=== PATIENT | female | born 1940 | race Caucasian/White ===

== ENCOUNTER → 2024-10-26 15:50 | Outpatient (REF) | payer OTHER, SELFPAY ==
[2024-10-26 16:52] LABS: Urine Albumin Trace (Neg - Trace); Urine Bilirubin Negative (Negative); Urine Character Clear (Clear); Urine Color Yellow; Urine Glucose Negative (Negative); Urine Ketone Negative (Negative); Urine Leukocyte 1+ (Negative); Urine Nitrite Negative (Negative); Urine Occult Blood Negative (Negative); Urine Urobilinogen Negative (Neg - 1+)
[2024-10-26 17:06] LABS: Urine Bacteria Moderate (Negative); Urine Red Blood Cell 0-2 /HPF (0-2)
== END ==
LOC: OLABBH 15:50
PROVIDERS: ATTENDING PHYSICIAN Family Medicine
DX: R30.0 Dysuria (principal)
CPT/HCPCS: 81003; 81015; 87086

== ENCOUNTER 2025-01-19 18:27 | Inpatient (IN) | payer OTHER, SELFPAY ==
[2025-01-19] VITALS (7 sets, daily range): BP systolic 127–184; BP diastolic 55–113; BMI 22.3
--- NOTE | 2025-01-19 14:10 | ED.GENMED ---
History of Present Illness
General
Chief Complaint: Fainting/Passed Out
Time Seen by Provider: 01/19/25 13:51
History of Present Illness
History of Present Illness:
Patient is a 84-year-old woman with history of dementia, prior CVA, hypertension, hyperlipidemia presenting to the emergency department change in her mental status. Per medics the concern was that patient was eating lunch and then slumped over and
had a syncopal event. I called [facility] who stated that patient is usually independent and walks around her floor. Today she was eating lunch in her usual state of health and then had sudden onset of generalized weakness and slumped over. No
slurring of her words. No focal deficits. On medics arrival she was 90% on room air so placed on 2 L. Otherwise history is limited given patient's dementia
Past History
Past History
ED Past Medical History: COPD, CVA, GERD, HTN, Hypercholesterolemia, Psychiatric (major depression), Other (sleep apnea, shingles,) and Other (chronic opiate use); Negative Renal failure (chronic kidney disease stage III)
ED Past Surgical History: Orthopedic (facet injection, epidural injection), Tonsilectomy and Other (Cataract)
Social History
Tobacco: Former smoker
Alcohol: Occasional
Drug: None
Personal:
Living: with family
Employment: Retired
Family History
Family History: Other
Phy Exam
Physical Exam
Physical Exam:
GENERAL: in no acute distress
HEENT: normocephalic, extraocular movements intact, moist oral mucosa
NECK: normal inspection
RESPIRATORY: no respiratory distress, clear to auscultation bilaterally
CARDIOVASCULAR: regular rate and rhythm
ABDOMEN/: soft, non-distended, non-tender to palpation, no rebound or guarding
EXTREMITIES: non-tender, no edema/swelling
NEUROLOGIC: awake and alert, oriented x 1, moves all extremities, equal strength in upper and lower extremities, no facial droop, no dysarthria
SKIN: warm
Course
Orders/Labs/Results
Orders:
Orders
01/19/25 14:00
Electrocardiogram (*1) Urgent
Reason for Study: Fatigue / Weakness
01/19/25 14:01
EKG- Treatment ONCE
01/19/25 14:04
Aspirin level [Salicylate] Urgent
COVID-19 Antigen Urgent
Source: Nasal Swab
Complete Blood Count/With Diff Urgent
Comprehensive Metabolic Panel Urgent
Troponin I Urgent
Tylenol [Acetaminophen] Urgent
Influenza A+B Rapid Molecular Urgent
TAYLOR Source: Nasal Swab
Specimen Description:
01/19/25 14:05
CT Head W/o Iv Contrast Urgent
Comment:
Reason For Exam: syncope
01/19/25 14:08
Urinalysis Reflex To Culture Urgent
CR Chest - 2 Views Urgent
Comment:
Reason For Exam: hypoxia
01/19/25 15:18
0.9% Sodium Chloride 1000 ml [Nss] 1,000 ml IV BOLUS
Abnormal Lab Results
01/19/25
14:04
Chloride 108 H mmol/L
(98-107)
BUN 34 H mg/dl
(7-17)
Creatinine 1.5 H mg/dL
(0.6-1.0)
Glucose 104 H mg/dl
(70-99)
Acetaminophen < 10 L ug/ml
(10-30)
01/19/25 14:04
Vital Signs
Initial and Last Documented VS:
Initial Vital Signs
Temp Pulse Resp
97.4 F 69 17
01/19/25 13:55 01/19/25 13:55 01/19/25 13:55
Last Documented Vital Signs
Temp Pulse Resp BP Pulse Ox
98.3 F 66 17 127/98 93
01/19/25 14:01 01/19/25 14:06 01/19/25 14:06 01/19/25 14:05 01/19/25 14:05
MDM/Problems Addressed
Differential Diagnosis Includes:
Patient is a 84-year-old woman presenting to the emergency department with change in her mental status and possible syncope. Vitals are unremarkable. She is on room air with normal oxygen. Exam does not show any neurodeficits. Broad differential
for patient including urine infection versus pneumonia versus metabolic derangement versus stroke though less likely as she has no obvious deficits. Will proceed with blood work urine EKG chest x-ray and CT scan of her head. She will need
admission .
*Critical Care Note
Total Time (30-74mins, 75-104mins- exclusive of procedures): Not Applicable
Update Note
Update Note:
Blood work is notable for an GEOFFREY. Creatinine is 1.5 with a baseline of 1. Will give fluids. CT scan of the head per my interpretation with no obvious hemorrhage. Official read pending. Discussed with hospitalist who accepted patient for
admission for change in mental status/possible syncope. CT read as well as urine and chest x-ray pending at the time of admission
ED Attending Note
-
Portions of this chart may have been created with voice recognition software.� Occasional wrong word or��sound alike� substitutions may have occurred due to the inherent limitations of voice recognition software.
Discharge Plan
Departure
Patient Disposition: Admit
Date of Disposition: 01/19/25
Time of Disposition: 15:19
Presentation/result/management discussed w/ accepting MD/DO: Hospitalist
Discharge Problem:
GEOFFREY (acute kidney injury), Altered mental status
Prescriptions:
No Action
rosuvastatin 5 MG tablet
5 mg PO DAILY@1999
donepezil 5 MG tablet
5 mg PO DAILY
Flovent Diskus 50 mcg/actuation blister with device
1 inh INHALATION R BID
sennosides [Senokot] 8.6 mg Tablet
8.6 mg PO DAILY@1999
amlodipine 2.5 mg Tablet
2.5 mg PO DAILY
acetaminophen 500 mg Tablet
1,000 mg PO TID@0600,1400,2200
alprazolam [Xanax] 0.25 mg Tablet
0.25 mg PO BID PRN (Reason: anxiety)
mirtazapine [Remeron] 15 mg Tablet
15 mg PO DAILY@1999
fluticasone propionate 50 mcg/actuation [place],Suspension
1 spray INTRANASAL DAILY
diclofenac sodium 1 % Gel
2 g TOPICAL BID
cholecalciferol (vitamin D3) [Vitamin D3] 50 mcg (2,000 unit) Tablet
50 mcg PO DAILY
aspirin 81 MG tablet,delayed release (DR/EC)
81 mg PO DAILY
pantoprazole [Protonix] 40 mg tablet,delayed release (DR/EC)
40 mg PO DAILY Qty: 30 0RF
Referrals:
Bird Corral MD [Family Provider] -
Interventions
Interventions:
*Risk Screen - Suicide Last Done: 01/19/25 13:58
*General Assessment Last Done: 01/19/25 14:00
*Neglect/Abuse Screening Last Done: 01/19/25 13:58
*ED COVID-19 Vaccine History Last Done: 01/19/25 13:58
Discharge Date and Time
Print Language: QATARI
[2025-01-19 14:35] LABS: ALT (SGPT) 16 U/L (0-35); AST (SGOT) 23 U/L (14-36); Acetaminophen < 10 ug/ml (10-30); Alkaline Phosphatase 49 U/L (38-126); Blood Urea Nitrogen 34 mg/dl (7-17); Carbon Dioxide 26 mmol/L (22-30); Chloride 108 mmol/L (98-107); Glucose 104 mg/dl (70-99); Potassium 4.8 mmol/L (3.5-5.1); Sodium 139 mmol/L (135-145); Total Bilirubin 0.3 mg/dl (0.2-1.3); Total Protein 6.3 g/dl (6.3-8.2); eGFR 34.15
[2025-01-19 14:38] LABS: COVID-19 Antigen Negative (Negative)
[2025-01-19 14:47] LABS: Troponin I 0.012 ng/ml
[2025-01-19 15:47] LABS: Salicylate < 1.0 mg/dl (2.0-20.0)
[2025-01-19 16:12] LABS: Hematocrit 29.1 % (37.0-47.0); Hemoglobin 8.1 g/dL (12.0-16.0); Mean Corp Hgb Conc. 27.8 g/dL (33.0-37.0); Mean Corpuscular Hgb 20.8 pg (27.0-31.0); Mean Corpuscular Volume 74.6 fL (81.0-99.0); Mean Platelet Volume 11.1 fL (7.4-10.4); Platelet Count 221 10^3/uL (130-400); Red Cell Dist. Width 17.1 % (11.5-14.5); White Blood Cell Count 6.4 10^3/uL (4.8-10.8)
--- NOTE | 2025-01-19 16:23 | HPS.HSE ---
Family Physician
-
Family Physician: Bird Corral
Chief Complaint
-
Slumped at table possible syncope
History of Present Illness
84-year-old female from [facility] who was reportedly sitting in the dining donald at a table eating lunch then had sudden generalized weakness and slumped over at the table. Staff reported there was no slurring of words or focal
deficits. She was eating lunch and in her usual state of health. She walked down to the dining donald with her walker. EMS report and oxygen 90% on room air and placed on 2 L however she was 94% on room air in the ER. She is oriented to first
name, date of 12�25 refers to her stepson is the best person of my life but did not know his name. She complains of left frontal headache/pressure she points to a pain scale face 5 out of 10. She did report headache earlier to nurse. She
denies dizziness or vertigo, blurred vision, sore throat, fever, chills, chest pain, palpitations, cough, shortness of breath, abdominal pain, nausea, vomiting, diarrhea, urinary symptoms.
Past medical history CVA 2008 with residual occasional dysarthria per son, HTN/hypertensive urgency 2019, upper GI bleed 12/01/2022 received 3 units PRBC,, dementia/moderate/severe, sundowning with agitation normally oriented to first name, date of
11/23 kuldip Kimbrough, walks with walker able to feed self, COPD, prior nicotine abuse 68 years 1 pack a day stop 2019, depression/anxiety, HLD, left humerus fracture 2021, chronic pain on chronic oral opiates
Impression/plan:
Admit to telemetry
#Episodic garbled speech concern for TIA versus CVA
#Possible syncope earlier today 01/19/2025 at shelter while sitting concern for Orthostatic hypotension versus TIA/CVA versus symptomatic anemia
#History CVA 2008 with residual episodic Dysarthria per kuldip Kimbrough POA at bedside
-Chronic infarcts bilateral external capsules on MRI brain 11/23/2020
COVID/influenza negative, CXR
-BP 167/55-permissive HTN x 24 hours
-Check lipid profile, HgbA1c
-Continue aspirin 81 mg daily
-Patient was taken off Plavix November 2022 due to upper GI bleed
-Continue Crestor 5 mg at bedtime
-Check Brain MRI
-Check Carotid ultrasounds
-Check orthostatics
-Consider Neurology consult in a.m. after imaging studies
PT/OT/case management consult
#Possible Syncope 2/2 Symptomatic Anemia
#History Upper GI bleed 12/01/2022
Hgb 8.1, blood consent obtained and sent
-Check type and screen
-Check stool occult blood
-Iron studies, B12, folate
-Continue IV Protonix 40 mg bid
-Clear liquid diet
Consider GI consult tomorrow based on labs and Hemoccult
EGD 12/01/2022 antral erythema, mild, biopsied,
GI note 12/02/2021 states at that time kuldip HAAS had refused colonoscopy as if anything was found he would not want surgery due to
history of dementia
#Possible syncope secondary to possible orthostatic hypotension
#HTN�benign
#Hx hypertensive urgency 2019
BP 127/98 > 167/55
-Check orthostatic vitals
-PT/OT
#Dementia/moderate�severe
#History of Sundowning with agitation especially when inpatient at hospital
-Patient lives at [facility] dementia unit
Oriented to first name, date of 11/23 but not year, occasionally recognizes kuldip Kimbrough at bedside today states' he is the best person in my
life but did not know his name'
-Normally walks with a walker stable gait is able to feed self with no difficulty
-Continue donepezil 5 mg daily
-Continue Xanax 0.5 mg twice daily as needed anxiety/agitation
-Continue risperidone 0.5 mg p.o. twice daily
#GEOFFREY on CKD 3 A
Creat 1.5 baseline appears 1.1
1 L IV NSS given in the ER, continue IV NSS 80 cc an hour x 2 L max
-Will follow BMP in a.m.
#COPD-no acute exacerbation
Prior nicotine abuse
- smoked 1 ppd for 68 years stopped 2019
-Continue albuterol inhaler every 6 as needed wheezing
#Hyperlipidemia
cont crestor 5 mg p.o. daily
-
#Depression /anxiety
- cont Wellbutrin 100 mg daily, Lexapro 5 mg daily, Xanax 0.25 mg twice daily as needed anxiety/agitation
#History of left humerus fracture unknown year question October 2022
#Chronic pain on chronic oral opiates
-Continue Tylenol 1000 mg , ,
-Continue oxycodone 2.5 mg p.o. twice daily, holkd senna in case Gi bleed
-Diclofenac sodium 2 g topical twice daily top left humerus
#History COVID 12/04/2022
-Did not require inpatient hospital stay
#Insomnia
-Continue melatonin 3 mg at bedtime, Remeron 30 mg p.o. at bedtime
Gi proph
iv ppi
Full code
Medical History
Past Medical History
Past Medical History: Reports Other
Additional Past Medical History:
CVA 2008 with residual occasional dysarthria per son
HTN/hypertensive urgency
Upper GI bleed 12/01/2022 received 3 units PRBC
Dementia/moderate/severe, sundowning with agitation normally oriented to first name, date of 11/23 kuldip Kimbrough, walks with walker able to
feed self
CKD 3B
COPD
Prior nicotine abuse 68 years 1 pack a day stop 2019
Depression/anxiety
HLD
Left humerus fracture 2021
chronic pain on chronic oral opiates
Spinal stenosis
COVID-19 infection October 2022 not hospitalized
Past Surgical History: Reports Other
Additional Past Surgical History:
Tonsillectomy
Left Knee Arthroscopy
Social History
Unable to obtain full social history at this time due to: Dementia
Tobacco: Former Smoker (68 years 1 pack a day stop 2019)
Alcohol: None
Drug: None
Personal: (2019)
Living: Long-Term ([facility] unit)
Employment: Retired
Family History
Family History: Other (Mother unsure, patient's father history Alzheimer's patient had 1 brother cancer unsure type per her kuldip Kimbrough at bedside)
Allergies / Home Medications
Allergies reflects when Allergies were last updated in [employer].
Home Medications with original date entered in [employer]
Allergy/Medication List:
Allergies
Allergy/AdvReac Type Severity Reaction Status Date / Time
No Known Drug Allergies Allergy Unknown Verified 12/02/21 18:27
Home Medications
rosuvastatin 5 mg tablet 5 mg PO DAILY High cholesterol 01/01/16
donepezil 5 mg tablet 5 mg PO DAILY Neurological Condition 05/06/21
acetaminophen 500 mg tablet 1,000 mg PO TID@0600,1400,2200 Pain 11/26/22
alprazolam 0.25 mg tablet (Xanax) 0.25 mg PO BIDPRN PRN anxiety 11/26/22
amlodipine 2.5 mg tablet 2.5 mg PO DAILY Blood pressure 11/26/22
cholecalciferol (vitamin D3) 50 mcg (2,000 unit) tablet (Vitamin D3) 50 mcg PO DAILY Supplement 11/26/22
diclofenac sodium 1 % topical gel 2 g topical BID top left humerus 11/26/22
sennosides 8.6 mg tablet (Senokot) 8.6 mg PO DAILY Constipation 11/26/22
aspirin 81 mg tablet,delayed release 81 mg PO DAILY Blood clot prevention/tx 11/27/22
pantoprazole 40 mg tablet,delayed release (Protonix) 40 mg PO DAILY #30 tabs 12/04/22
albuterol sulfate 90 mcg/actuation aerosol inhaler 2 puff inhalation R Q6HPRN PRN wheezing 01/19/25
azelastine 137 mcg (0.1 %) nasal spray 1 spray intranasal DAILY 01/19/25
bupropion HCl 100 mg tablet,12 hr sustained-release 100 mg PO DAILY 01/19/25
escitalopram oxalate 5 mg tablet 5 mg PO DAILY 01/19/25
guaifenesin 600 mg tablet, extended release 12 hr (Mucinex) 600 mg PO BID 01/19/25
ipratropium bromide 21 mcg (0.03 %) nasal spray 1 spray intranasal DAILY 01/19/25
loratadine 10 mg tablet 10 mg PO DAILY 01/19/25
melatonin 3 mg tablet 3 mg PO HS 01/19/25
mirtazapine 30 mg tablet 30 mg PO HS 01/19/25
oxycodone 5 mg tablet 2.5 mg PO BID 01/19/25
risperidone 0.5 mg tablet 0.5 mg PO BID 01/19/25
Review of Systems
-
History Source: Patient, Family (Kuldip Kimbrough at bedside) and Long-Term ([facility] report to ER nurse)
A 12 point ROS was completed and negative except as noted: Yes
Constitutional: Reports Other (Slumped over at table during eating lunch no reported slurred speech unsure if actual syncope); Denies Fever or Chills
EENT: Denies Sore Throat or Runny Nose
Respiratory: Denies Cough or Trouble Breathing
Cardiac: Reports Syncope (Possible today); Denies Chest Pain, Diaphoresis or Palpitations
Abdomen/GI: Denies Abdominal Pain, Nausea, Vomiting, Diarrhea, Constipated or Bloody Stools
: Denies Dysuria, Frequency, Flank Pain, Incontinence, Difficulty Voiding or Urgency
Musculoskeletal: Denies Joint Pain or Edema
Skin: Denies Itching or Rash
Neurological: Reports Headache (Patient points to left side frontal head 5 out of 10 picture scale); Denies Dizzy or Weakness
Endocrine: Reports No Symptoms
Hematologic/Lymphatic: Reports No Symptoms
Psych: Reports Calm
Physical Exam
Vital Signs
Vital Signs
Temp Pulse Resp BP Pulse Ox
98.3 F 66 17 127/98 93
01/19/25 14:01 01/19/25 14:06 01/19/25 14:06 01/19/25 14:05 01/19/25 14:05
Physical Exam
General: Comfortable and Conversant; No Fever or Chills
HEENT: NormoCephalic, PERRLA (3 mm bilateral), [place] Conjunctivae, No Ptosis, Neck Nontender and Other (Episodic dysarthric speech when attempting to show me where her headache was lasting approximately 30 seconds then resumed to baseline clear)
Respiratory: Clear; No Wheezes or Rales
Cardiac: S1/S2, Regular Rhythm and Peripheral Edema (+1 dorsal pedal); No Tachycardia, Murmur, Rub or Gallop
Breast: Deferred by me
GI: Soft, Non Tender, Non Distended, Normal Bowel Sounds and No Hepatosplenomegaly
Rectal: Deferred by Provider
Genito-urinary: Deferred by me
Musculoskeletal: No Clubbing, No Cyanosis, Edema, Left Lower Extremity (Dorsal pedal edema +1) and No Edema (Dorsal pedal edema +1); No Edema, Left Upper Extremity or Edema, Right Upper Extremity
Skin: Warm and Dry; No Rash or Jaundice
Neuro: Awake, Alert, Oriented (To first name, date of 11/23 but not year, recognize son-in-law's face as the best person of her life but forgot his name, knows she is in a hospital,), No Motor Deficits, Nonfocal/grossly intact, Cranial Nerves
Intact, No Sensory Deficits, Slurred Speech (20 to 30 seconds episodic dysarthric speech when trying to move her left hand to head to show me where her headache was did resolve with no other focal deficits went back to baseline orientation) and
Other (Full range of motion upper arms lower legs 5 out of 5 strength); No Facial Droop, Tremors or Sedated
Psych: Anxious
Laboratory Results
-
01/19/25 14:04
01/19/25 14:04
Laboratory Results
Total Bilirubin 0.3 mg/dl (0.2-1.3) 01/19/25 14:04
AST 23 U/L (14-36) 01/19/25 14:04
ALT 16 U/L (0-35) 01/19/25 14:04
Alkaline Phosphatase 49 U/L (38-126) 01/19/25 14:04
Troponin I 0.012 ng/ml 01/19/25 14:04
Impression/Plan
-
IMPRESSION:
PLAN:
[2025-01-19] MEDS: NSS 1000 IV ×2 (16:26→18:23)
[2025-01-19 16:28] LABS: % Basophils 0.9 % (0-2); % Eosinophils 3.3 % (0-6); % Immature Granulocytes 0.2 % (0-0.5); % Lymphocytes 21.5 % (20.5-51.1); % Monocytes 8.9 % (1.7-9.3); % Neutrophils 65.2 % (42.2-75.2); Absolute Basophils 0.1 10^3/uL (0-0.2); Absolute Eosinophils 0.2 10^3/uL (0-0.7); Absolute Lymphocytes 1.4 10^3/uL (1.2-3.4); Absolute Monocytes 0.6 10^3/uL (0.1-0.6); Absolute Neutrophils 4.2 10^3/uL (1.4-6.5); Nucleated Red Blood Cells % 0 %
[2025-01-19 16:35] LABS: Anisocytosis 2+; Hypochromasia 3+; Macrocytosis 2+; Normal RBC Morphology No; Ovalocytes 2+; Tear Drop Red Blood Cells 1+
[2025-01-19 16:37] LABS: Urine Albumin 1+ (Neg - Trace); Urine Bilirubin Negative (Negative); Urine Character Clear (Clear); Urine Color Yellow; Urine Glucose Negative (Negative); Urine Ketone Negative (Negative); Urine Leukocyte Negative (Negative); Urine Nitrite Negative (Negative); Urine Occult Blood Negative (Negative); Urine Urobilinogen Negative (Neg - 1+)
[2025-01-19 17:32] LABS: Iron < 20 ug/dl (37-170)
[2025-01-19] MEDS: TYLENOL 1000 MG PO (17:33)
[2025-01-19 17:36] LABS: Total Iron Binding Capacity 331 ug/dl (265-497)
[2025-01-19 17:42] LABS: Urine Red Blood Cell 0-2 /HPF (0-2); Urine Squamous Cell 0-2 /LPF (Few); Urine White Cell 0-2 /HPF (0-5)
--- NOTE | 2025-01-19 17:49 | W.PN.UPDATE ---
Update Note
Progress Note Update
This is an addendum to the H&P written by Katalina Amato on 01/19/2025. Patient seen and examined independently with NAPHTHAL[facility] OPERATOR.
84-year-old female past medical history of anemia secondary to upper GI bleeding, hypertension, hyperlipidemia, CKD 3A, CVA, COPD, dementia, anxiety/depression, presenting from [facility] with change in mental status. She slumped over a [place]
house with possible syncopal episode.
Patient had profound dysarthria now resolved.
Complaining of headache currently and did have an episode of dysarthria with Katalina now resolved.
Labs show worsening hemoglobin down to 8.1 from 9.2 previously. Creatinine of 1.[address] head shows no acute abnormality. Chest x-ray unremarkable. Urinalysis unremarkable. COVID and flu negative.
Unclear etiology of possible syncopal episode. This could be secondary to orthostatic hypotension versus versus symptomatic anemia versus CVA.
Check orthostatic vital signs. Anemia workup including fecal occult. IV Protonix 40 twice daily. Clear liquids, n.p.o. past midnight. Continue IV fluids. Check MRI brain and carotid ultrasound. Colonoscopy was refused in the past.
[2025-01-19 18:05] LABS: TSH Reflex To Free T4 0.72 uIU/ml (0.47-4.68)
[2025-01-19 18:09] LABS: Ferritin 8.4 ng/ml (11.1-264.0)
[2025-01-19] MEDS: NSS (PRESERVATIVE FREE) 10 ML IV (18:19)
[2025-01-19] MEDS: XANAX 0.25 MG PO ×2 (18:21→21:01)
[2025-01-19] MEDS: PROTONIX IV 40 MG IV (18:21)
[2025-01-19 18:40] LABS: Folate 10.2 ng/ml (2.76-20); Vitamin B12 240 pg/ml (239-931)
[2025-01-19] MEDS: RISPERDAL 0.5 MG PO (21:01)
[2025-01-19] MEDS: MELATONIN 3 MG PO (22:33)
[2025-01-19] MEDS: DICLOFENAC 1% TOPICAL GEL TOPICAL (22:34)
[2025-01-19] MEDS: ROXICODONE PO (22:34)
[2025-01-19] MEDS: REMERON 30 MG PO (22:35)
[2025-01-20] VITALS (8 sets, daily range): BP systolic 119–200; BP diastolic 71–96; PULSE 77
--- NOTE | 2025-01-20 05:25 | PTCARENOTE ---
Patient arrived to floor. Patient was pulled over onto bed. Bed alarm placed under patient. Patient oriented to room, call musa in reach, bed in lowest position. Will continue to monitor.
[2025-01-20 06:13] LABS: Hemoglobin 8.1 g/dL (12.0-16.0); Mean Corpuscular Volume 74.4 fL (81.0-99.0); White Blood Cell Count 6.8 10^3/uL (4.8-10.8)
[2025-01-20 06:14] LABS: % Immature Granulocytes 0.4 % (0-0.5); % Lymphocytes 17.6 % (20.5-51.1); % Monocytes 8.6 % (1.7-9.3); % Neutrophils 69.4 % (42.2-75.2); Absolute Basophils 0.1 10^3/uL (0-0.2); Absolute Eosinophils 0.2 10^3/uL (0-0.7); Absolute Lymphocytes 1.2 10^3/uL (1.2-3.4); Absolute Monocytes 0.6 10^3/uL (0.1-0.6); Absolute Neutrophils 4.7 10^3/uL (1.4-6.5); Mean Corp Hgb Conc. 27.9 g/dL (33.0-37.0); Mean Corpuscular Hgb 20.8 pg (27.0-31.0); Mean Platelet Volume 10.3 fL (7.4-10.4); Nucleated Red Blood Cells % 0 %; Platelet Count 220 10^3/uL (130-400)
[2025-01-20 06:36] LABS: ALT (SGPT) 17 U/L (0-35); AST (SGOT) 27 U/L (14-36); Albumin 4.3 g/dl (3.5-5.0); Alkaline Phosphatase 55 U/L (38-126); Blood Urea Nitrogen 23 mg/dl (7-17); Carbon Dioxide 21 mmol/L (22-30); Chloride 109 mmol/L (98-107); Estimated Creatinine Clearance 30 ml/min; Glucose 95 mg/dl (70-99); HDL Cholesterol 73 mg/dl; LDL Cholesterol, Calculated 29 mg/dl; Magnesium 1.9 mg/dl (1.6-2.3); Potassium 4.3 mmol/L (3.5-5.1); Sodium 141 mmol/L (135-145); Total Bilirubin 0.7 mg/dl (0.2-1.3); Total Cholesterol 117 mg/dl (50-199); Total Protein 6.6 g/dl (6.3-8.2); Triglyceride 76 mg/dl (10-149); Very Low Density Lipoprotein 15 mg/dl (0-30); eGFR 44.64
[2025-01-20] MEDS: TYLENOL 1000 MG PO ×2 (06:36→14:28)
[2025-01-20] MEDS: NSS 1000 IV ×2 (06:37→23:00)
--- NOTE | 2025-01-20 07:36 | W.PN.HOSP.TC ---
Today's Communication/Plan
-
Head CT showed no acute intracranial abnormalities. Patient was taken off Plavix November 2022 due to an upper GI bleed. Awaiting brain MRI. Carotid ultrasound canceled. Neurology consulted.
Assessment / Plan
Assessment / Plan
HPI: Patient is an 84-year-old female from [facility] who was brought to the emergency department after having an episode of sudden generalized weakness and slumping over at a table while eating lunch at the [employer]. Staff
reported there were no slurring of words or focal deficits. She was eating lunch and in her normal state of health prior to these events. She walked herself down to the dining don[employer] with her walker as she usually does. The patient has a past
medical history of CVA in 2008 with residual occasional dysarthria per son, hypertension/hypertensive urgency in 2019, upper GI bleed on 12/01/2022 and received 3 units of PRBCs at that time, dementia, sundowning, COPD, former smoker with
approximately 68 pack years, depression/anxiety, hyperlipidemia, left humerus fracture in 2021, chronic pain on chronic oral opiates. On arrival, EMS reported an oxygen saturation of 90% on room air and she was placed on 2 L with 94% oxygen
saturation while in the ER. On arrival to the emergency department the patient was oriented to first name, date of , and she referred to her stepson as the best person in her life but did not remember his name. She denied any dizziness,
vertigo, blurred vision, sore throat, fever, chills, chest pain, palpitations, cough, shortness of breath, abdominal pain, nausea, vomiting, diarrhea, and urinary symptoms. In the emergency department the patient's white blood cell count was 6.4
within normal limits and her hemoglobin was 8.1. Chemistry labs showed an elevated chloride of 108, elevated BUN of 34, and a marked increase of creatinine of 1.5 from her baseline of 1.1 measured on 12/04/2022. This sudden rise in creatinine
indicated acute kidney injury. Of note, the patient's ferritin was measured at 8.4. Troponins were within normal limits. The patient was admitted to [facility] for altered mental status and acute kidney injury.
Assessment/Plan:
-Altered mental status:
Secondary to TIA, CVA or toxic metabolic encephalopathy
Patient had a history of CVA in 2008 with residual episodic dysarthria as per kuldip Kimbrough who is the power of finance attorney at bedside
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
Patient was taken off Plavix on November 2022 due to upper GI bleed
Blood pressure was elevated at 167/55�currently allowed permissive hypertension
LFTs within normal limits
Alk phos within normal limit
Continue aspirin 81 mg daily
Brain MRI -pending
Head CT conducted on 01/19/2025 showed no acute intracranial abnormalities. There is an old 8 mm lacunar infarct in the posterior inferior aspect of the left Lang there is moderate diffuse cortical atrophy with moderate nonspecific white matter
changes.
Carotid ultrasound
Chest x-ray conducted on 01/19/2025 showed lungs clear of consolidation. Cardiac silhouette size is enlarged with no convincing evidence of interstitial edema pattern.
Monitor orthostatics
Neurology consulted
-Acute kidney injury on CKD stage IIIa:
Creatinine measured in the emergency department was 1.5 compared to a baseline of 1.1 on prior lab work
1 L IV normal saline given in the emergency department�continue IV fluid support
Continue to trend creatinine and follow CMP
Syncope secondary to symptomatic anemia versus orthostatic hypotension:
Patient has a history of upper GI bleed on 12/01/2022
EGD on 12/01/2022 showed antral erythema, mild, it was biopsied
Gastroenterology note on 12/02/2021 states that at the time that a colonoscopy would not be done due to family decision.
Hemoglobin in the emergency department was measured at 8.1
Stool occult blood
Iron, B12, folate
Stress ulcer prophylaxis is Protonix 40 mg twice daily
May consider GI consult if suspicion of GI bleed
Follow orthostatic vitals
Will consult PT/OT
-History of hypertensive urgency in 2020
Continue amlodipine
-Dementia with history of sundowning:
Moderate/severe dementia
Patient has a history of sundowning with agitation while admitted to the hospital
Normally walks with a walker
Continue donepezil
Continue Xanax and risperidone
-COPD:
History of nicotine dependence
98-bfmd-dbed smoker that stopped in 2019
Continue albuterol as needed
-Hyperlipidemia:
Continue Crestor
CODE STATUS: DNR
Stress Ulcer Prophylaxis: Protonix IV
DVT Prophylaxis: Sequential compression devices
Anticipated Discharge: > 48 hours
Subjective/Interval History
-
Date of Service: January 20, 2025
Met with patient at the bedside. The patient is pleasant in conversation but appears tired, fatigued and confused. She was confused when I asked her if I could listen to her heart and lungs and required numerous attempts at explanation for her to
understand that I was just going to listen to her with my stethoscope.
Objective Data
-
Labs:
Laboratory Results
01/20/25
05:54
WBC 6.8
Hgb 8.1 L
Hct 29.0 L
Plt Count 220
Sodium 141
Potassium 4.3
Chloride 109 H
Carbon Dioxide 21 L
BUN 23 H
Creatinine 1.2 H
Glucose 95
Calcium 9.0
Total Bilirubin 0.7
AST 27
ALT 17
Alkaline Phosphatase 55
Vital Signs:
Vital Signs
Temp Pulse Resp BP Pulse Ox
97.4 F 77 18 161/75 95
01/20/25 03:34 01/20/25 03:34 01/20/25 03:34 01/20/25 03:34 01/20/25 03:34
I&O
01/19/25 01/20/25 01/21/25
06:59 06:59 06:59
Intake Total 480 / 480
Balance 480 / 480
Review of Systems
-
History Source: Patient
Constitutional: Reports No Symptoms
EENT: Reports No Symptoms Reported
Respiratory: Reports No Symptoms
Cardiac: Reports No Symptoms
Abdomen/GI: Reports No Symptoms
Breast: Reports No Symptoms
Genitourinary: Reports No Symptoms
Musculoskeletal: Reports No Symptoms
Skin: Reports No Symptoms
Neuro: Reports No Symptoms
Physical Exam
-
General: Well Developed, Well Nourished and No Apparent Distress
HEENT: Normocephalic, Atraumatic and Moist Mucous Membranes
Respiratory: Clear to Auscultation
Cardiac: S1/S2; Negative Murmur, Rub or JVD
Breast: Deferred by me
GI: Soft, Nontender, Nondistended and Normal Bowel Sounds
Rectal: Deferred by Provider
Genito-urinary: Deferred by me
Musculoskeletal: No Clubbing
Psych: Confused
--- NOTE | 2025-01-20 08:15 | W.PN.UPDATE ---
Update Note
Progress Note Update
I saw and evaluated the patient. I reviewed the resident�s note and agree with findings and plan as documented in the resident�s note.
Patient offers no acute complaints.
Gen: NAD, Awake and alert
Eyes: EOMI, PERRLA, no scleral icterus.
Neck: supple.
CV: RRR, +S1/S2, no m/r/g.
Resp: CTAB, no rales, wheezes, or rhonchi.
Abd: +BS, soft, NT, ND
Skin: No rashes.
Neuro: CN 2-12 intact, non-focal.
Psych: Normal mood and affect.
Episodic dysarthria (garbled speech):
-possible TIA/CVA, possibly due to possible syncope on 01/19/2025
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
-Chronic infarcts bilateral external capsules on MRI brain 11/23/2020
-check MRI brain
-no indication for carotid U/S prior to MRI, cancelled for now
-Tele, reviewed my me, with afib/flutter
-cont ASA/statin
-note, pt was taken off Plavix November 2022 due to upper GI bleed
-PT/OT/CM
-c/s neuro
Other problems:
Chronic anemia: Hb stable
Essential HTN: cont Norvasc
Dementia, mod-sev: h/o sundowning/agitation (behavioral disturbances), cont Aricept/Risperdone/Xanax PRN
GEOFFREY on CKD3a, resolved with IVFs
COPD, not in acute exacerbation: albuterol PRN
Hyperlipidemia: cont statin
Depression/anxiety: cont Wellbutrin/Lexapro/Xanax PRN
Chronic pain with chronic opioid use with dependence: cont home oxycodone
Insomnia: Cont Melatonin/Remeron
FULL/SCDs
--- NOTE | 2025-01-20 08:48 | CON.NEURO ---
Consultation
Order
Date of Consultation: 01/20/25
Requesting Provider: Shamar Ng MD
Reason for Consult: Dysarthria
Neurology Consultation Note.
HPI: This is an 84-year-old woman who presented to [facility] on 01/19/2025 with a spell. According to EMR patient was witnessed to slumped over in the table during the lunch on the day of presentation.
Neurology consultation was requested for evaluation and management of dysarthria. According to EMR patient Ms. Drummond has had intermittent dysarthria since her stroke.
The patient is unable to provide history.
ER VS: 127/98-184/76, afebrile.
EKG:NSR, QTc Int : 437 ms
PDMP:Oxycodone Hcl (Ir) 5 Mg 30 tablets filled in on 11/25/2024, 12/21/2024, Alprazolam 0.25 Mg 30 tabs filled in on 11/02/2024.
Labs: Glucose�104, creatinine�1.5, normal sodium, WBCs, TSH, hemoglobin�8.1, LDL�29, B12�240
CT head wo contrast-chronic 8 mm lacunar infarct in the posterior inferior aspect left putamen; moderate diffuse cortical atrophy with moderate nonspecific white matter changes.
MAR: Risperidone, oxycodone, alprazolam.
PMH: left lentiform nucleus infarct, L4-5 spinal stenosis, HTN, CKD, COPD, h/o GIB, anemia, ambulatory dysfunction, CASTRO, MDD, chronic pain syndrome
PSH:unknown
SH: resident at [facility]; ambulates with a walker, former smoker.
FH: Unknown
All:NKDA
ROS: Negative for headache, change in vision, strength.
General: Well developed. In no acute distress.
Cardio: Regular rate . Extremities are without cyanosis or edema.
Neuro:
Mental Status: Alert, oriented to name, '50' ' I am at my home '. Nonfluent, no hemineglect. Fluctuating mood. Disinhibited.
Cranial Nerves: Pupils are equally round and reactive to light. Horizontal EOMs full. Blink to threat bilaterally. Bilateral ptosis no nystagmus. Face symmetric. Preserved hearing AU. No dysarthria.
Motor: increased motor tone right greater than left
Reflexes: Limited exam due to increased motor tone/cooperation
Sensory: Limited due to poor attention.
Coordination: No tremors myoclonic movements.
Gait: deferred
Assessment and Plan:
I. Probable syncope, less likely seizure.
II. Multifactorial encephalopathy (neurodegenerative, toxic, metabolic)
III. 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
IV. Vitamin B12 insufficiency
V. L4-L5 central spinal stenosis with ambulatory dysfunction
-Continue telemetry monitoring
-Fall and delirium precautions
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
-Please check CK, MMA, HC, antiparietal and anti IF ab
-Routine EEG
-Continue aspirin for stroke prophylaxis. LDL�at goal.
-Will obtain collateral history from patient's family regarding cognitive baseline.
-DVT prophylaxis.
I personally reviewed all radiology and labs along with past medical records pertinent to current medical problems. Total time spent in patient care is 60 minutes.
Thank you for allowing us to participate in the care of this patient. We will continue to follow. Please do not hesitate to contact us with any questions or concerns.
Subjective/Objective
Subjective Data
Date of Service: January 20, 2025
Objective Data
Vital Signs
Temp Pulse Resp BP Pulse Ox
36.5 C 74 16 156/77 95
01/20/25 07:44 01/20/25 07:44 01/20/25 07:44 01/20/25 07:44 01/20/25 07:44
Lab Results
01/20/25 05:54
01/20/25 05:54
Sodium 141 mmol/L (135-145) 01/20/25 05:54
Potassium 4.3 mmol/L (3.5-5.1) 01/20/25 05:54
BUN 23 mg/dl (7-17) H 01/20/25 05:54
Glucose 95 mg/dl (70-99) 01/20/25 05:54
Calcium 9.0 mg/dl (8.4-10.2) 01/20/25 05:54
LDL Cholesterol, Calc 29 mg/dl 01/20/25 05:54
Vitamin B12 240 pg/ml (239-931) 01/19/25 14:04
Patient Allergies
No Known Drug Allergies Allergy (Verified 12/02/21 18:27)
Unknown
Medications
-
Active Medications
Generic Name Dose Route Start Last Admin
Trade Name Freq PRN Reason Stop Dose Admin
Acetaminophen 1,000 mg 01/20/25 06:00 01/20/25 06:36
Acetaminophen 500 Mg Tablet PO 02/17/25 05:59 1,000 mg
TID@0600,1400,2200 JOSEPHINE Administration
Albuterol 2 puff 01/19/25 20:17
Albuterol Hfa [90 Mcg/Dose] Inhaler INH
R Q6HPRN PRN
wheezing
Protocol
Alprazolam 0.25 mg 01/19/25 20:17 01/19/25 21:01
Alprazolam 0.25 Mg Tablet PO 02/16/25 20:16 0.25 mg
BIDPRN PRN Administration
anxiety
Amlodipine Besylate 2.5 mg 01/20/25 08:00
Amlodipine 2.5 Mg Tablet PO 02/17/25 07:59
DAILY JOSEPHINE
Aspirin 81 mg 01/20/25 08:00
Aspirin 81 Mg (Enteric Coated) Tablet PO 02/17/25 07:59
DAILY JOSEPHINE
Bupropion HCl 100 mg 01/20/25 08:00
Bupropion (12hr) Sustained Release 100 Mg Tablet PO 02/17/25 07:59
DAILY JOSEPHINE
Cholecalciferol 50 mcg 01/20/25 08:00
Cholecalciferol (Vitamin D3) 50 Mcg Tablet (2,000 Units) PO 02/17/25 07:59
DAILY JOSEPHINE
Diclofenac Sodium 2 gram 01/19/25 20:17 01/19/25 22:34
Diclofenac 1% Topical Gel 100 Gram Tube TOPICAL 02/16/25 20:16 Not Given
BID JOSEPHINE
Protocol
Donepezil HCl 5 mg 01/20/25 08:00
Donepezil 5 Mg Tablet PO 02/17/25 07:59
DAILY JOSEPHINE
Escitalopram Oxalate 5 mg 01/20/25 08:00
Escitalopram 5 Mg Tablet PO 02/17/25 07:59
DAILY JOSEPHINE
Sodium Chloride 1,000 mls @ 80 mls/hr 01/19/25 17:45 01/20/25 06:37
Nss IV 01/20/25 18:44 1,000 mls
.[id number] JOSEPHINE Administration
Loratadine 10 mg 01/20/25 08:00
Loratadine 10 Mg Tablet PO 02/17/25 07:59
DAILY JOSEPHINE
Melatonin 3 mg 01/19/25 22:00 01/19/25 22:33
Melatonin 3 Mg Tablet PO 02/16/25 21:59 3 mg
HS JOSEPHINE Administration
Mirtazapine 30 mg 01/19/25 22:00 01/19/25 22:35
Mirtazapine 30 Mg Tablet PO 02/16/25 21:59 30 mg
HS JOSEPHINE Administration
Oxycodone HCl 2.5 mg 01/19/25 20:17 01/19/25 22:34
Oxycodone 5 Mg Regular Release Tablet PO 02/02/25 20:16 Not Given
BID JOSEPHINE
Pantoprazole Sodium 40 mg 01/20/25 08:00
Pantoprazole Sodium 40 Mg/10 Ml Vial IV 02/17/25 07:59
BID JOSEPHINE
Risperidone 0.5 mg 01/19/25 20:17 01/19/25 21:01
Risperidone 0.5 Mg Tablet PO 02/16/25 20:16 0.5 mg
BID JOSEPHINE Administration
Rosuvastatin Calcium 5 mg 01/20/25 08:00
Rosuvastatin (Crestor) 5 Mg Tablet PO 02/17/25 07:59
DAILY JOSEPHINE
Sodium Chloride 10 ml 01/20/25 08:00
Sodium Chloride 0.9% (Preservative Free) 10 Ml Vial IV 02/17/25 07:59
BID JOSEPHINE
Sodium Chloride 0 flush 01/19/25 19:00
Sodium Chloride 0.9% (Flush) Syringe IV 02/16/25 18:59
PER PROTOCOL JOSEPHINE
Home Medications
�Medication �Instructions �Recorded
rosuvastatin 5 mg tablet 5 mg PO DAILY High cholesterol 01/01/16
donepezil 5 mg tablet 5 mg PO DAILY Neurological 05/06/21
Condition
acetaminophen 500 mg tablet 1,000 mg PO TID@0600,1400,2200 Pain 11/26/22
alprazolam 0.25 mg tablet (Xanax) 0.25 mg PO BIDPRN PRN anxiety 11/26/22
amlodipine 2.5 mg tablet 2.5 mg PO DAILY Blood pressure 11/26/22
cholecalciferol (vitamin D3) 50 50 mcg PO DAILY Supplement 11/26/22
mcg (2,000 unit) tablet (Vitamin
D3)
diclofenac sodium 1 % topical gel 2 g topical BID top left humerus 11/26/22
sennosides 8.6 mg tablet (Senokot) 8.6 mg PO DAILY Constipation 11/26/22
aspirin 81 mg tablet,delayed 81 mg PO DAILY Blood clot 11/27/22
release prevention/tx
pantoprazole 40 mg tablet,delayed 40 mg PO DAILY #30 tabs 12/04/22
release (Protonix)
albuterol sulfate 90 mcg/actuation 2 puff inhalation R Q6HPRN PRN 01/19/25
aerosol inhaler wheezing
azelastine 137 mcg (0.1 %) nasal 1 spray intranasal DAILY 01/19/25
spray
bupropion HCl 100 mg tablet,12 hr 100 mg PO DAILY 01/19/25
sustained-release
escitalopram oxalate 5 mg tablet 5 mg PO DAILY 01/19/25
guaifenesin 600 mg tablet, 600 mg PO BID 01/19/25
extended release 12 hr (Mucinex)
ipratropium bromide 21 mcg (0.03 1 spray intranasal DAILY 01/19/25
%) nasal spray
loratadine 10 mg tablet 10 mg PO DAILY 01/19/25
melatonin 3 mg tablet 3 mg PO HS 01/19/25
mirtazapine 30 mg tablet 30 mg PO HS 01/19/25
oxycodone 5 mg tablet 2.5 mg PO BID 01/19/25
risperidone 0.5 mg tablet 0.5 mg PO BID 01/19/25
Vital Signs and Labs
-
Vital Signs and Labs:
Vital Signs
Temp Pulse Resp BP Pulse Ox
36.6 C 75 16 119/84 96
01/20/25 11:17 01/20/25 11:17 01/20/25 11:17 01/20/25 11:17 01/20/25 11:17
Lab Results
01/20/25 05:54
01/20/25 05:54
Sodium 141 mmol/L (135-145) 01/20/25 05:54
Potassium 4.3 mmol/L (3.5-5.1) 01/20/25 05:54
BUN 23 mg/dl (7-17) H 01/20/25 05:54
Glucose 95 mg/dl (70-99) 01/20/25 05:54
Calcium 9.0 mg/dl (8.4-10.2) 01/20/25 05:54
LDL Cholesterol, Calc 29 mg/dl 01/20/25 05:54
Vitamin B12 240 pg/ml (265-613) 01/19/25 14:04
Medications
-
Medications:
Generic Name Dose Route Start Last Admin
Trade Name Freq PRN Reason Stop Dose Admin
Acetaminophen 1,000 mg 01/20/25 06:00 01/20/25 06:36
Acetaminophen 500 Mg Tablet PO 02/17/25 05:59 1,000 mg
TID@0600,1400,2200 JOSEPHINE Administration
Albuterol 2 puff 01/19/25 20:17
Albuterol Hfa [90 Mcg/Dose] Inhaler INH
R Q6HPRN PRN
wheezing
Protocol
Alprazolam 0.25 mg 01/19/25 20:17 01/19/25 21:01
Alprazolam 0.25 Mg Tablet PO 02/16/25 20:16 0.25 mg
BIDPRN PRN Administration
anxiety
Amlodipine Besylate 2.5 mg 01/20/25 08:00 01/20/25 09:17
Amlodipine 2.5 Mg Tablet PO 02/17/25 07:59 2.5 mg
DAILY JOSEPHINE Administration
Aspirin 81 mg 01/20/25 08:00 01/20/25 09:17
Aspirin 81 Mg (Enteric Coated) Tablet PO 02/17/25 07:59 81 mg
DAILY JOSEPHINE Administration
Bupropion HCl 100 mg 01/20/25 08:00 01/20/25 09:18
Bupropion (12hr) Sustained Release 100 Mg Tablet PO 02/17/25 07:59 100 mg
DAILY JOSEPHINE Administration
Cholecalciferol 50 mcg 01/20/25 08:00 01/20/25 09:18
Cholecalciferol (Vitamin D3) 50 Mcg Tablet (2,000 Units) PO 02/17/25 07:59 50 mcg
DAILY JOSEPHINE Administration
Diclofenac Sodium 2 gram 01/19/25 20:17 01/20/25 09:19
Diclofenac 1% Topical Gel 100 Gram Tube TOPICAL 02/16/25 20:16 2 gram
BID JOSEPHINE Administration
Protocol
Donepezil HCl 5 mg 01/20/25 08:00 01/20/25 09:17
Donepezil 5 Mg Tablet PO 02/17/25 07:59 5 mg
DAILY JOSEPHINE Administration
Escitalopram Oxalate 5 mg 01/20/25 08:00 01/20/25 09:18
Escitalopram 5 Mg Tablet PO 02/17/25 07:59 5 mg
DAILY JOSEPHINE Administration
Sodium Chloride 1,000 mls @ 80 mls/hr 01/19/25 17:45 01/20/25 06:37
Nss IV 01/20/25 18:44 1,000 mls
.[id number] JOSEPHINE Administration
Loratadine 10 mg 01/20/25 08:00 01/20/25 09:18
Loratadine 10 Mg Tablet PO 02/17/25 07:59 10 mg
DAILY JOSEPHINE Administration
Melatonin 3 mg 01/19/25 22:00 01/19/25 22:33
Melatonin 3 Mg Tablet PO 02/16/25 21:59 3 mg
HS JOSEPHINE Administration
Mirtazapine 30 mg 01/19/25 22:00 01/19/25 22:35
Mirtazapine 30 Mg Tablet PO 02/16/25 21:59 30 mg
HS JOSEPHINE Administration
Oxycodone HCl 2.5 mg 01/19/25 20:17 01/20/25 09:21
Oxycodone 5 Mg Regular Release Tablet PO 02/02/25 20:16 2.5 mg
BID JOSEPHINE Administration
Pantoprazole Sodium 40 mg 01/20/25 08:00 01/20/25 09:21
Pantoprazole Sodium 40 Mg/10 Ml Vial IV 02/17/25 07:59 40 mg
BID JOSEPHINE Administration
Risperidone 0.5 mg 01/19/25 20:17 01/20/25 09:18
Risperidone 0.5 Mg Tablet PO 02/16/25 20:16 0.5 mg
BID JOSEPHINE Administration
Rosuvastatin Calcium 5 mg 01/20/25 08:00 01/20/25 09:18
Rosuvastatin (Crestor) 5 Mg Tablet PO 02/17/25 07:59 5 mg
DAILY JOSEPHINE Administration
Sodium Chloride 10 ml 01/20/25 08:00 01/20/25 09:20
Sodium Chloride 0.9% (Preservative Free) 10 Ml Vial IV 02/17/25 07:59 10 ml
BID JOSEPHINE Administration
Sodium Chloride 0 flush 01/19/25 19:00
Sodium Chloride 0.9% (Flush) Syringe IV 02/16/25 18:59
PER PROTOCOL JOSEPHINE
Home Medications
-
Home Medications
rosuvastatin 5 mg tablet 5 mg PO DAILY High cholesterol 01/01/16
donepezil 5 mg tablet 5 mg PO DAILY Neurological Condition 05/06/21
acetaminophen 500 mg tablet 1,000 mg PO TID@0600,1400,2200 Pain 11/26/22
alprazolam 0.25 mg tablet (Xanax) 0.25 mg PO BIDPRN PRN anxiety 11/26/22
amlodipine 2.5 mg tablet 2.5 mg PO DAILY Blood pressure 11/26/22
cholecalciferol (vitamin D3) 50 mcg (2,000 unit) tablet (Vitamin D3) 50 mcg PO DAILY Supplement 11/26/22
diclofenac sodium 1 % topical gel 2 g topical BID top left humerus 11/26/22
sennosides 8.6 mg tablet (Senokot) 8.6 mg PO DAILY Constipation 11/26/22
aspirin 81 mg tablet,delayed release 81 mg PO DAILY Blood clot prevention/tx 11/27/22
pantoprazole 40 mg tablet,delayed release (Protonix) 40 mg PO DAILY #30 tabs 12/04/22
albuterol sulfate 90 mcg/actuation aerosol inhaler 2 puff inhalation R Q6HPRN PRN wheezing 01/19/25
azelastine 137 mcg (0.1 %) nasal spray 1 spray intranasal DAILY 01/19/25
bupropion HCl 100 mg tablet,12 hr sustained-release 100 mg PO DAILY 01/19/25
escitalopram oxalate 5 mg tablet 5 mg PO DAILY 01/19/25
guaifenesin 600 mg tablet, extended release 12 hr (Mucinex) 600 mg PO BID 01/19/25
ipratropium bromide 21 mcg (0.03 %) nasal spray 1 spray intranasal DAILY 01/19/25
loratadine 10 mg tablet 10 mg PO DAILY 01/19/25
melatonin 3 mg tablet 3 mg PO HS 01/19/25
mirtazapine 30 mg tablet 30 mg PO HS 01/19/25
oxycodone 5 mg tablet 2.5 mg PO BID 01/19/25
risperidone 0.5 mg tablet 0.5 mg PO BID 01/19/25
[2025-01-20] MEDS: ARICEPT 5 MG PO (09:17)
[2025-01-20] MEDS: NORVASC 2.5 MG PO (09:17)
[2025-01-20] MEDS: ASPIR LOW (ENTERIC COATED) 81 MG PO (09:17)
[2025-01-20] MEDS: VITAMIN D3 (cholecalciferol) 50 MCG PO (09:18)
[2025-01-20] MEDS: WELLBUTRIN SR (12 hour sustained release) 100 MG PO (09:18)
[2025-01-20] MEDS: RISPERDAL 0.5 MG PO ×2 (09:18→20:11)
[2025-01-20] MEDS: CLARITIN 10 MG PO (09:18)
[2025-01-20] MEDS: LEXAPRO 5 MG PO (09:18)
[2025-01-20] MEDS: CRESTOR 5 MG PO (09:18)
[2025-01-20] MEDS: DICLOFENAC 1% TOPICAL GEL 2 GRAM TOPICAL ×2 (09:19→20:11)
[2025-01-20] MEDS: NSS (PRESERVATIVE FREE) 10 ML IV ×2 (09:20→20:10)
[2025-01-20] MEDS: ROXICODONE 2.5 MG PO ×2 (09:21→20:09)
[2025-01-20] MEDS: PROTONIX IV 40 MG IV ×2 (09:21→20:11)
[2025-01-20 10:16] LABS: Glycohemoglobin (HgbA1c) 5.4 % (4.0-5.6)
--- NOTE | 2025-01-20 11:21 | CM ---
Addendum entered by Bella Garcia 01/20/25 14:18:
CM spoke with Kimberly from [facility]; work cell [phone]. IF patient medically appropriate for transfer back to personal care please call Kimberly at the above phone number and she is requesting clinicals be sent to her by secure
email at [email or web address]. Patient was previously independent with her walker and patient did need assistance with dressing, but is independent of eating. Patient family at bedside and per family they would prefer that patient return to
[facility] if at all possible but they understand that if patient needs SNF they would need to consider other options. Family indicated that they would talk to [facility] about patient.
Plan; return to [facility] personal care vs SNF; pending PT/OT assessment
Original Note:
Patient seen at bedside. Patient lives currently at [facility] per chart review. CM left multipule messages requesting call back at [phone]/nursing home physician cell [phone]. CM called to patient step son and left as well. Patient
previously had been at [facility] and left there per Liaison in 2022. CM will continue to follow for discharge planning needs.
Plan; return to [facility] with VN vs snf
--- NOTE | 2025-01-20 13:25 | EEG.RPT ---
Electroencephalogram Report
Recording
Date of EE01/20/25
Type of EEG: Routine
Length of EEG recordin minutes
Done with Video Recording: Yes
Patient Status: Inpatient
Recording Conditions: Awake and Drowsy
Hyperventilation Performed: No
Photic Stimulation Performed: Yes
Report
LESS THAN 1 HOUR EEG REPORT
LESS THAN 1 HOUR EEG INTERPRETATION:
Mildly abnormal study for age based on generalized slowing demonstrated bihemispherically equally
CLINICAL CORRELATION:
Although normative values not been established for a person of this advanced age the patient�s symmetry of the background suggests that this study was suggestive of mild bihemispheric cortical dysfunction. No epileptiform features were demonstrated.
If concerns remain regarding epilepsy, prolonged monitoring may be of assistance.
Clinical correlation is advised.
METHODS:
A 21-channel digital electroencephalogram (EEG) was performed in the Clinical Neurophysiology Laboratory. The 10/20 international system of electrode placement was used with ECG and lateral/vertical eye movements recorded. The [employer] quantitative
system was utilized.
IMPRESSION(S):
Quality of study
Fair-good
Background
Expected amplitude
Anterior-posterior voltage gradient differentiation: Fair
Theta frequency maximal background demonstrated
Sleep
Drowsiness present
Hyperventilation
Not performed
Photic Stimulation
Failed to activate the record
ECG
Normal rhythm
Abnormal Activity
None
[2025-01-20] MEDS: MELATONIN 3 MG PO (21:10)
[2025-01-20] MEDS: TYLENOL PO ×2 (21:10→21:16)
[2025-01-20] MEDS: REMERON 30 MG PO (21:10)
[2025-01-20] MEDS: XANAX 0.25 MG PO (21:53)
[2025-01-21 02:50] VITALS: BP 155/70
[2025-01-21 04:06] VITALS: BMI 21.2
[2025-01-21] MEDS: TYLENOL 500 MG PO (05:22)
[2025-01-21] MEDS: NSS 1000 IV (05:23)
--- NOTE | 2025-01-21 07:38 | W.PN.HOSP.TC ---
Today's Communication/Plan
-
see bold
Assessment / Plan
Assessment / Plan
Gen: NAD, NCAT
CV: RRR, +S1/S2, no m/r/g.
Resp: CTAB anteriorly, no rales, wheezes, or rhonchi.
Abd: +BS, soft, NT, ND
Skin: No rashes.
Psych: calm
MRI brain: Cerebral atrophy along with chronic small vessel ischemia in the cerebral white matter and sarah. No acute MR findings in the head.
Episodic dysarthria (garbled speech):
-possible TIA/CVA, possibly due to possible syncope on 01/19/2025
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
-Chronic infarcts bilateral external capsules on MRI brain 11/23/2020
-EEG without seizure activity
-MRI brain without acute CVA
-Tele, reviewed my me, without afib/flutter
-cont ASA/statin
-note, pt was taken off Plavix November 2022 due to upper GI bleed
-PT/OT/CM
-neuro following
Other problems:
Chronic anemia: Hb stable
Essential HTN: cont Norvasc
Dementia, mod-sev: h/o sundowning/agitation (behavioral disturbances), cont Aricept/Risperdone/Xanax PRN
GEOFFREY on CKD3a, resolved with IVFs
COPD, not in acute exacerbation: albuterol PRN
Hyperlipidemia: cont statin
Depression/anxiety: cont Wellbutrin/Lexapro/Xanax PRN
Chronic pain with chronic opioid use with dependence: cont home oxycodone
Insomnia: Cont Melatonin/Remeron
FULL/Lovenox
Medically cleared for d/c. Case management aware.
Anticipated Discharge: 24 - 48 hours
Subjective/Interval History
-
Date of Service: January 21, 2025
Pt sleeping.
Objective Data
-
Labs:
Laboratory Results
01/21/25
06:27
WBC Pending
Hgb Pending
Hct Pending
Plt Count Pending
Sodium Pending
Potassium Pending
Chloride Pending
Carbon Dioxide Pending
BUN Pending
Creatinine Pending
Glucose Pending
Calcium Pending
Total Bilirubin Pending
AST Pending
ALT Pending
Alkaline Phosphatase Pending
Vital Signs:
Vital Signs
Temp Pulse Resp BP Pulse Ox
97.6 F 88 16 155/70 91
01/21/25 03:00 01/21/25 03:00 01/21/25 03:00 01/21/25 02:50 01/21/25 03:00
I&O
01/20/25 01/21/25 01/22/25
06:59 06:59 06:59
Intake Total 480 / 480 1260 / 1260
Balance 480 / 480 1260 / 1260
[2025-01-21 07:56] LABS: % Basophils 0.6 % (0-2); % Eosinophils 3.1 % (0-6); % Immature Granulocytes 0.4 % (0-0.5); % Lymphocytes 16.3 % (20.5-51.1); % Monocytes 8.9 % (1.7-9.3); % Neutrophils 70.7 % (42.2-75.2); Absolute Basophils 0.1 10^3/uL (0-0.2); Absolute Eosinophils 0.2 10^3/uL (0-0.7); Absolute Lymphocytes 1.3 10^3/uL (1.2-3.4); Absolute Monocytes 0.7 10^3/uL (0.1-0.6); Absolute Neutrophils 5.5 10^3/uL (1.4-6.5); Hemoglobin 7.9 g/dL (12.0-16.0); Mean Corp Hgb Conc. 28.2 g/dL (33.0-37.0); Mean Corpuscular Volume 74.3 fL (81.0-99.0); Mean Platelet Volume 10.4 fL (7.4-10.4); Nucleated Red Blood Cells % 0 %; Platelet Count 200 10^3/uL (130-400); Red Blood Cell Count 3.77 10^6/uL (4.20-5.40); Red Cell Dist. Width 17.1 % (11.5-14.5); White Blood Cell Count 7.8 10^3/uL (4.8-10.8)
[2025-01-21] MEDS: ASPIR LOW (ENTERIC COATED) 81 MG PO (08:06)
[2025-01-21] MEDS: RISPERDAL 0.5 MG PO ×2 (08:06→21:32)
[2025-01-21] MEDS: WELLBUTRIN SR (12 hour sustained release) 100 MG PO (08:06)
[2025-01-21] MEDS: LEXAPRO 5 MG PO (08:06)
[2025-01-21] MEDS: CLARITIN 10 MG PO (08:06)
[2025-01-21] MEDS: ROXICODONE 2.5 MG PO ×2 (08:06→21:32)
[2025-01-21] MEDS: CRESTOR 5 MG PO (08:06)
[2025-01-21] MEDS: ARICEPT 5 MG PO (08:07)
[2025-01-21] MEDS: NORVASC 2.5 MG PO (08:07)
[2025-01-21] MEDS: VITAMIN D3 (cholecalciferol) 50 MCG PO (08:07)
[2025-01-21] MEDS: PROTONIX IV 40 MG IV ×2 (08:08→21:32)
[2025-01-21] MEDS: NSS (PRESERVATIVE FREE) 10 ML IV ×2 (08:09→21:33)
[2025-01-21 08:15] LABS: ALT (SGPT) 16 U/L (0-35); AST (SGOT) 33 U/L (14-36); Albumin 3.7 g/dl (3.5-5.0); Alkaline Phosphatase 48 U/L (38-126); Blood Urea Nitrogen 17 mg/dl (7-17); Calcium 8.6 mg/dl (8.4-10.2); Carbon Dioxide 24 mmol/L (22-30); Chloride 109 mmol/L (98-107); Estimated Creatinine Clearance 33 ml/min; Glucose 75 mg/dl (70-99); Potassium 4.4 mmol/L (3.5-5.1); Sodium 140 mmol/L (135-145); Total Bilirubin 0.6 mg/dl (0.2-1.3); Total Protein 5.9 g/dl (6.3-8.2); eGFR 49.55
[2025-01-21 08:28] VITALS: BP 174/73
[2025-01-21] MEDS: DICLOFENAC 1% TOPICAL GEL 2 GRAM TOPICAL ×2 (08:28→21:30)
--- NOTE | 2025-01-21 13:45 | W.PN.NEURO.1 ---
Today's Communication / Plan
-
.
Subjective/Objective
Subjective Data
Date of Service: January 21, 2025
Neurology follow-up note
24-hour events: Intermittently agitated
Labs: vit B12�240
Brain MRI wo [place](01/20/2025)�no acute abnormalities, cerebral atrophy.
Routine EEG (01/20/2025)�mild diffuse slowing, no epileptiform abnormalities.
PMH:left lentiform nucleus infarct, L4-5 spinal stenosis, HTN, CKD, COPD, h/o GIB, anemia, ambulatory dysfunction, PASQUALE, MDD, chronic pain syndrome
PSH:unknown
SH: resident at [facility]; ambulates with a walker, former smoker.
FH: Unknown
All:NKDA
ROS: Negative for headache, change in vision, strength.
General: Restless
Cardio: Regular rate . Extremities are without cyanosis or edema.
Neuro:
Mental Status: Alert, oriented to name name only. Attends to examiner. Does not follow requests. Minimal verbal output.
Cranial Nerves: Pupils are equally round and reactive to light. Horizontal EOMs full. Blink to threat bilaterally. Bilateral ptosis no nystagmus. Face symmetric. Preserved hearing AU. No dysarthria.
Motor: increased motor tone right greater than left
Coordination: No tremors myoclonic movements.
Gait: deferred
Assessment and Plan:
I. Probable syncope, less likely seizure.
II. Multifactorial encephalopathy (neurodegenerative, toxic, metabolic)
III. 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
IV. Vitamin B12 insufficiency
V. L4-L5 central spinal stenosis with ambulatory dysfunction
-Continue telemetry monitoring
-Fall and delirium precautions
-Avoid MARBLE HELPER suppressants.
-Continue aspirin for stroke prophylaxis. LDL�at goal.
-Psychiatry consult if agitation worsens
-DVT prophylaxis.
-Please recall neurology services any questions or concerns
I personally reviewed all radiology and labs along with past medical records pertinent to current medical problems. Total time spent in patient care is 37 minutes.
Thank you for allowing us to participate in the care of this patient. Please do not hesitate to contact us with any questions or concerns.
Objective Data
Vital Signs
Temp Pulse Resp BP Pulse Ox
36.4 C 87 24 174/73 92
01/21/25 08:28 01/21/25 08:28 01/21/25 08:28 01/21/25 08:28 01/21/25 08:28
Lab Results
01/21/25 06:27
01/21/25 06:27
Sodium 140 mmol/L (135-145) 01/21/25 06:27
Potassium 4.4 mmol/L (3.5-5.1) 01/21/25 06:27
BUN 17 mg/dl (7-17) 01/21/25 06:27
Glucose 75 mg/dl (70-99) 01/21/25 06:27
Calcium 8.6 mg/dl (8.4-10.2) 01/21/25 06:27
LDL Cholesterol, Calc 29 mg/dl 01/20/25 05:54
Vitamin B12 240 pg/ml (156-621) 01/19/25 14:04
Patient Allergies
No Known Drug Allergies Allergy (Verified 12/02/21 18:27)
Unknown
Vital Signs and Labs
-
Vital Signs and Labs:
Vital Signs
Temp Pulse Resp BP Pulse Ox
36.4 C 87 24 174/73 92
01/21/25 08:28 01/21/25 08:28 01/21/25 08:28 01/21/25 08:28 01/21/25 08:28
Lab Results
01/21/25 06:27
01/21/25 06:27
Sodium 140 mmol/L (135-145) 01/21/25 06:27
Potassium 4.4 mmol/L (3.5-5.1) 01/21/25 06:27
BUN 17 mg/dl (7-17) 01/21/25 06:27
Glucose 75 mg/dl (70-99) 01/21/25 06:27
Calcium 8.6 mg/dl (8.4-10.2) 01/21/25 06:27
LDL Cholesterol, Calc 29 mg/dl 01/20/25 05:54
Vitamin B12 240 pg/ml (239-931) 01/19/25 14:04
Medications
-
Medications:
Generic Name Dose Route Start Last Admin
Trade Name Freq PRN Reason Stop Dose Admin
Acetaminophen 1,000 mg 01/20/25 06:00 01/21/25 05:22
Acetaminophen 500 Mg Tablet PO 02/17/25 05:59 500 mg
TID@0600,1400,2200 JOSEPHINE Administration
Albuterol 2 puff 01/19/25 20:17
Albuterol Hfa [90 Mcg/Dose] Inhaler INH
R Q6HPRN PRN
wheezing
Protocol
Alprazolam 0.25 mg 01/19/25 20:17 01/20/25 21:53
Alprazolam 0.25 Mg Tablet PO 02/16/25 20:16 0.25 mg
BIDPRN PRN Administration
anxiety
Amlodipine Besylate 2.5 mg 01/20/25 08:00 01/21/25 08:07
Amlodipine 2.5 Mg Tablet PO 02/17/25 07:59 2.5 mg
DAILY JOSEPHINE Administration
Aspirin 81 mg 01/20/25 08:00 01/21/25 08:06
Aspirin 81 Mg (Enteric Coated) Tablet PO 02/17/25 07:59 81 mg
DAILY JOSEPHINE Administration
Bupropion HCl 100 mg 01/20/25 08:00 01/21/25 08:06
Bupropion (12hr) Sustained Release 100 Mg Tablet PO 02/17/25 07:59 100 mg
DAILY JOSEPHINE Administration
Cholecalciferol 50 mcg 01/20/25 08:00 01/21/25 08:07
Cholecalciferol (Vitamin D3) 50 Mcg Tablet (2,000 Units) PO 02/17/25 07:59 50 mcg
DAILY JOSEPHINE Administration
Cyanocobalamin 1,000 mcg 01/21/25 11:00
Cyanocobalamin 1,000 Mcg Tablet PO 01/27/25 08:01
DAILY JOSEPHINE
Diclofenac Sodium 2 gram 01/19/25 20:17 01/21/25 08:28
Diclofenac 1% Topical Gel 100 Gram Tube TOPICAL 02/16/25 20:16 2 gram
BID JOSEPHINE Administration
Protocol
Donepezil HCl 5 mg 01/20/25 08:00 01/21/25 08:07
Donepezil 5 Mg Tablet PO 02/17/25 07:59 5 mg
DAILY JOSEPHINE Administration
Enoxaparin Sodium 40 mg 01/21/25 18:00
Enoxaparin Sodium 40 Mg/0.4 Ml Syringe SC 02/18/25 17:59
QPM JOSEPHINE
Escitalopram Oxalate 5 mg 01/20/25 08:00 01/21/25 08:06
Escitalopram 5 Mg Tablet PO 02/17/25 07:59 5 mg
DAILY JOSEPHINE Administration
Sodium Chloride 1,000 mls @ 60 mls/hr 01/20/25 23:00 01/21/25 05:23
Nss IV 1,000 mls
[id number] JOSEPHINE Administration
Loratadine 10 mg 01/20/25 08:00 01/21/25 08:06
Loratadine 10 Mg Tablet PO 02/17/25 07:59 10 mg
DAILY JOSEPHINE Administration
Melatonin 3 mg 01/19/25 22:00 01/20/25 21:10
Melatonin 3 Mg Tablet PO 02/16/25 21:59 3 mg
HS JOSEPHINE Administration
Mirtazapine 30 mg 01/19/25 22:00 01/20/25 21:10
Mirtazapine 30 Mg Tablet PO 02/16/25 21:59 30 mg
HS JOSEPHINE Administration
Oxycodone HCl 2.5 mg 01/19/25 20:17 01/21/25 08:06
Oxycodone 5 Mg Regular Release Tablet PO 02/02/25 20:16 2.5 mg
BID JOSEPHINE Administration
Pantoprazole Sodium 40 mg 01/20/25 08:00 01/21/25 08:08
Pantoprazole Sodium 40 Mg/10 Ml Vial IV 02/17/25 07:59 40 mg
BID JOSEPHINE Administration
Risperidone 0.5 mg 01/19/25 20:17 01/21/25 08:06
Risperidone 0.5 Mg Tablet PO 02/16/25 20:16 0.5 mg
BID JOSEPHINE Administration
Rosuvastatin Calcium 5 mg 01/20/25 08:00 01/21/25 08:06
Rosuvastatin (Crestor) 5 Mg Tablet PO 02/17/25 07:59 5 mg
DAILY JOSEPHINE Administration
Sodium Chloride 10 ml 01/20/25 08:00 01/21/25 08:09
Sodium Chloride 0.9% (Preservative Free) 10 Ml Vial IV 02/17/25 07:59 10 ml
BID JOSEPHINE Administration
Sodium Chloride 0 flush 01/19/25 19:00
Sodium Chloride 0.9% (Flush) Syringe IV 02/16/25 18:59
PER PROTOCOL JOSEPHINE
Home Medications
-
Home Medications
rosuvastatin 5 mg tablet 5 mg PO DAILY High cholesterol 01/01/16
donepezil 5 mg tablet 5 mg PO DAILY memory/cognition 05/06/21
acetaminophen 500 mg tablet 1,000 mg PO TID@0600,1400,2200 Pain 11/26/22
alprazolam 0.25 mg tablet (Xanax) 0.25 mg PO BIDPRN PRN anxiety 11/26/22
amlodipine 2.5 mg tablet 2.5 mg PO DAILY Blood pressure 11/26/22
cholecalciferol (vitamin D3) 50 mcg (2,000 unit) tablet (Vitamin D3) 50 mcg PO DAILY Supplement 11/26/22
diclofenac sodium 1 % topical gel 2 g topical BID top left humerus 11/26/22
sennosides 8.6 mg tablet (Senokot) 8.6 mg PO DAILY Constipation 11/26/22
aspirin 81 mg tablet,delayed release 81 mg PO DAILY Blood clot prevention/tx 11/27/22
albuterol sulfate 90 mcg/actuation aerosol inhaler 2 puff inhalation R Q6HPRN PRN wheezing 01/19/25
azelastine 137 mcg (0.1 %) nasal spray 1 spray intranasal DAILY allergies 01/19/25
bupropion HCl 100 mg tablet,12 hr sustained-release 100 mg PO DAILY depression/anxiety 01/19/25
escitalopram oxalate 5 mg tablet 5 mg PO DAILY depression/anxiety 01/19/25
guaifenesin 600 mg tablet, extended release 12 hr (Mucinex) 600 mg PO BID cough/congestion 01/19/25
ipratropium bromide 21 mcg (0.03 %) nasal spray 1 spray intranasal DAILY allergies 01/19/25
loratadine 10 mg tablet 10 mg PO DAILY allergies 01/19/25
melatonin 3 mg tablet 3 mg PO HS sleep 01/19/25
mirtazapine 30 mg tablet 30 mg PO HS depression/sleep 01/19/25
oxycodone 5 mg tablet 2.5 mg PO BID pain 01/19/25
risperidone 0.5 mg tablet 0.5 mg PO BID Mental Health/Anxiety 01/19/25
pantoprazole 40 mg tablet,delayed release (Protonix) 40 mg PO DAILY Gastrointestinal Issue 01/20/25
[2025-01-21] MEDS: TYLENOL 1000 MG PO ×2 (13:54→21:32)
[2025-01-21] MEDS: VITAMIN B-12 1000 MCG PO (13:54)
[2025-01-21 15:00] VITALS: BP 158/65
--- NOTE | 2025-01-21 15:38 | PTCARENOTE ---
patient seems to be either restless/anxious or sleeping, PO intake poor, PO's encouraged, turns with assist x1-2, depending on mood she is in, vss, will continue to monitor.
[2025-01-21] MEDS: XANAX 0.25 MG PO (15:41)
[2025-01-21] MEDS: LOVENOX 40 MG SC (17:14)
[2025-01-21] MEDS: REMERON 30 MG PO (21:32)
[2025-01-21] MEDS: MELATONIN 3 MG PO (21:32)
[2025-01-21 23:20] VITALS: BP 135/80
--- NOTE | 2025-01-21 23:32 | PTCARENOTE ---
NC 2 L applied for spo2 88-90. 2L nc applied. Patient turned onto side. Spo2 95-96 %. Overnight provider, sierra Barrett.
[2025-01-22] VITALS (7 sets, daily range): BP systolic 100–204; BP diastolic 56–91; BMI 20.6
[2025-01-22] MEDS: NSS 1000 IV (00:04)
[2025-01-22 05:35] LABS: % Basophils 0.7 % (0-2); % Eosinophils 2.3 % (0-6); % Immature Granulocytes 0.6 % (0-0.5); % Lymphocytes 12.4 % (20.5-51.1); Absolute Basophils 0.1 10^3/uL (0-0.2); Absolute Eosinophils 0.2 10^3/uL (0-0.7); Absolute Immature Granulocytes 0.1 10^3/uL (0-0.05); Absolute Lymphocytes 1.2 10^3/uL (1.2-3.4); Absolute Monocytes 0.9 10^3/uL (0.1-0.6); Absolute Neutrophils 7.2 10^3/uL (1.4-6.5); Hematocrit 31.6 % (37.0-47.0); Mean Corp Hgb Conc. 28.5 g/dL (33.0-37.0); Mean Corpuscular Hgb 20.8 pg (27.0-31.0); Mean Corpuscular Volume 73.1 fL (81.0-99.0); Mean Platelet Volume 10.8 fL (7.4-10.4); Nucleated Red Blood Cells % 0 %; Platelet Count 178 10^3/uL (130-400); Red Blood Cell Count 4.32 10^6/uL (4.20-5.40); White Blood Cell Count 9.6 10^3/uL (4.8-10.8)
[2025-01-22 05:48] LABS: ALT (SGPT) 19 U/L (0-35); AST (SGOT) 39 U/L (14-36); Albumin 4.1 g/dl (3.5-5.0); Alkaline Phosphatase 55 U/L (38-126); Blood Urea Nitrogen 18 mg/dl (7-17); Calcium 8.7 mg/dl (8.4-10.2); Carbon Dioxide 19 mmol/L (22-30); Chloride 108 mmol/L (98-107); Estimated Creatinine Clearance 33 ml/min; Glucose 66 mg/dl (70-99); Potassium 4.3 mmol/L (3.5-5.1); Sodium 139 mmol/L (135-145); Total Bilirubin 0.8 mg/dl (0.2-1.3); Total Protein 6.3 g/dl (6.3-8.2); eGFR 49.55
--- NOTE | 2025-01-22 07:41 | W.PN.HOSP.TC ---
Today's Communication/Plan
-
d/c
Assessment / Plan
Assessment / Plan
Gen: remains NAD, NCAT
CV: remains RRR, +S1/S2, no m/r/g.
Resp: remains CTAB anteriorly, no rales, wheezes, or rhonchi.
Abd: +BS, soft, NT, ND
Skin: No rashes.
Psych: calm
MRI brain: Cerebral atrophy along with chronic small vessel ischemia in the cerebral white matter and sarah. No acute MR findings in the head.
Episodic dysarthria (garbled speech):
-possible TIA/CVA, possibly due to possible syncope on 01/19/2025
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
-Chronic infarcts bilateral external capsules on MRI brain 11/23/2020
-EEG without seizure activity
-MRI brain without acute CVA
-Tele, reviewed my me, without afib/flutter
-cont ASA/statin
-note, pt was taken off Plavix November 2022 due to upper GI bleed
-PT/OT/CM
-neuro following
Other problems:
Chronic anemia: Hb stable
Essential HTN: cont Norvasc
Dementia, mod-sev: h/o sundowning/agitation (behavioral disturbances), cont Aricept/Risperdone/Xanax PRN
GEOFFREY on CKD3a, resolved with IVFs
COPD, not in acute exacerbation: albuterol PRN
Hyperlipidemia: cont statin
Depression/anxiety: cont Wellbutrin/Lexapro/Xanax PRN
Chronic pain with chronic opioid use with dependence: cont home oxycodone
Insomnia: Cont Melatonin/Remeron
FULL/Lovenox
Medically cleared for d/c. Case management aware.
Anticipated Discharge: Today
Subjective/Interval History
-
Date of Service: January 22, 2025
Pt sleeping.
Objective Data
-
Labs:
Laboratory Results
01/22/25
04:43
WBC 9.6
Hgb 9.0 L
Hct 31.6 L
Plt Count 178
Sodium 139
Potassium 4.3
Chloride 108 H
Carbon Dioxide 19 L
BUN 18 H
Creatinine 1.1 H
Glucose 66 L
Calcium 8.7
Total Bilirubin 0.8
AST 39 H
ALT 19
Alkaline Phosphatase 55
Vital Signs:
Vital Signs
Temp Pulse Resp BP Pulse Ox
98.1 F 73 22 135/80 95
01/21/25 23:20 01/21/25 23:20 01/21/25 23:20 01/21/25 23:20 01/21/25 23:20
I&O
01/21/25 01/22/25 01/23/25
06:59 06:59 06:59
Intake Total 1260 / 1260 840 / 840
Balance 1260 / 1260 840 / 840
[2025-01-22] MEDS: CRESTOR 5 MG PO (08:00)
[2025-01-22] MEDS: ROXICODONE 2.5 MG PO (08:00)
[2025-01-22] MEDS: TYLENOL 1000 MG PO ×2 (08:00→21:18)
[2025-01-22] MEDS: VITAMIN D3 (cholecalciferol) 50 MCG PO (08:00)
[2025-01-22] MEDS: ARICEPT 5 MG PO (08:00)
[2025-01-22] MEDS: NORVASC 2.5 MG PO (08:00)
[2025-01-22] MEDS: ASPIR LOW (ENTERIC COATED) 81 MG PO (08:00)
[2025-01-22] MEDS: RISPERDAL 0.5 MG PO ×2 (08:00→21:18)
[2025-01-22] MEDS: LEXAPRO 5 MG PO (08:00)
[2025-01-22] MEDS: CLARITIN 10 MG PO (08:00)
[2025-01-22] MEDS: PROTONIX IV 40 MG IV ×2 (08:01→21:19)
[2025-01-22] MEDS: DICLOFENAC 1% TOPICAL GEL 2 GRAM TOPICAL ×2 (08:01→21:19)
[2025-01-22] MEDS: VITAMIN B-12 1000 MCG PO (08:01)
[2025-01-22] MEDS: NSS (PRESERVATIVE FREE) 10 ML IV ×2 (08:01→21:18)
[2025-01-22] MEDS: WELLBUTRIN SR (12 hour sustained release) 100 MG PO (08:01)
--- NOTE | 2025-01-22 08:47 | CM ---
CM following re: discharge planning.
Reviewed pt's chart, met with pt and spoke to pt's son Luis E to update on discharge plan progress.
According to MD pt is medically stable to be discharged today.
PT and OT evaluated the pt last week on Thursday and SNF level of care recommended. CM discussed it with pt's son Luis E, he requested pt going to a SNF. A list of SNFs provided to pt's son. Following SNFs preferred: [facility], [facility], [facility], [facility]. A referral to above SNFs made. Awaiting for determination.
D/C plan: preferred SNF.
CM will follow to assist pt with discharge to a preferred SNF.
--- NOTE | 2025-01-22 11:44 | PTCARENOTE ---
Blood pressure elevated, made aware. Pt increasingly lethargic, made aware.
[2025-01-22] MEDS: APRESOLINE 10 MG IV ×2 (12:18→23:57)
[2025-01-22] MEDS: TYLENOL PO (15:11)
--- NOTE | 2025-01-22 16:20 | PTCARENOTE ---
Pt increasingly tremulous and short of breathe. Crackles auscultated at lung bases. Vitals obtained, made aware.
[2025-01-22] MEDS: D5/0.45%NACL 1000 IV (16:23)
[2025-01-22] MEDS: LOVENOX 40 MG SC (18:15)
[2025-01-22] MEDS: MELATONIN 3 MG PO (21:18)
[2025-01-22] MEDS: REMERON 30 MG PO (21:18)
[2025-01-22] MEDS: XANAX 0.25 MG PO (23:57)
[2025-01-23] VITALS (8 sets, daily range): BP systolic 143–198; BP diastolic 59–76; PULSE 67–74; BMI 20.8
[2025-01-23] MEDS: APRESOLINE 10 MG IV ×2 (04:59→23:33)
[2025-01-23] MEDS: TYLENOL 1000 MG PO ×3 (05:53→21:21)
[2025-01-23] MEDS: D5/0.45%NACL 1000 IV (06:12)
--- NOTE | 2025-01-23 07:25 | W.PN.HOSP.TC ---
Addendum entered and electronically signed by Roxann Hart MD, Resident 01/25/25 09:18:
CLARIFICATION: Patient requires a standard wheelchair due to ambulatory dysfunction. Patient is unable to abulate on her own due to dementia. A Standard Wheelchair is needed within the home for the patient to complete her daily activities. A walker
has been considered, but is clinically ineffective due to patient's condition and poor ability to ambulate.
Addendum entered and electronically signed by Roxann Hart MD, Resident 01/23/25 16:29:
Patient requires a lightweight wheelchair due to ambulatory dysfunction. Patient is unable to self-propel in a standard wheelchair. A walker has been considered, but is clinically ineffective due to patient's condition.
Addendum entered and electronically signed by Luisana Cordero MD 01/23/25 15:53:
I saw and evaluated the patient independently. I reviewed the resident�s note and agree with findings and plan as documented by Dr. Hart.
GENERAL: well developed, well nourished, female in no apparent distress
HEENT: NC/AT--no O2 requirements
HEART: regular rate and rhythm, +S1, +S2
LUNGS : clear to auscultation bilaterally
ABDOM: soft, nontender, nondistended, + bowel sounds
EXT: no cyanosis, clubbing, or edema
NEUROLOGIC: apparent dementia
Altered mental status--likely due to dementia--no acute findings on MRI--chronic infarcts seen--cont asa--apprec neuro
Acute kidney injury on CKD stage IIIa--improved with IVF--can stop IVF
Syncope secondary to symptomatic anemia versus orthostatic hypotension (no orthostatic VS documented, no order placed)--will order--cont PPI--apprec PT/OT
History of hypertensive urgency--Continue amlodipine
Dementia with history of sundowning--at [facility]--cont donepazil, xanax, risperidone
COPD--no acute exacerbation--albuterol PRN
Hyperlipidemia--Continue Crestor
DVT proph
code status -- DNR
Original Note:
Today's Communication/Plan
-
Most recent imaging including brain MRI showed no acute processes. The patient appears to be back at her baseline and has reached maximal benefit from this hospital stay. Discharge planning underway. Will move forward with discharge once able.
Assessment / Plan
Assessment / Plan
Assessment/Plan:
-Altered mental status:
Episodic dysarthria based on history -uncertain if patient did fully lose consciousness, but patient was slow to respond and had garbled speech as per history taken from staff and family
Patient had a history of CVA in 2008 with residual episodic dysarthria as per kuldip Kimbrough who is the power of associate attorney at bedside
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
Patient was taken off Plavix on November 2022 due to upper GI bleed
Blood pressure was elevated at 167/55�currently allowed permissive hypertension
LFTs within normal limits
Alk phos within normal limit
Continue aspirin 81 mg daily
Brain MRI -showed cerebral atrophy along with chronic small vessel ischemia in the cerebral white matter and sarah. No acute MRI findings in the head.
Head CT conducted on 01/19/2025 showed no acute intracranial abnormalities. There is an old 8 mm lacunar infarct in the posterior inferior aspect of the left Lang there is moderate diffuse cortical atrophy with moderate nonspecific white matter
changes.
Chest x-ray conducted on 01/19/2025 showed lungs clear of consolidation. Cardiac silhouette size is enlarged with no convincing evidence of interstitial edema pattern.
Monitor orthostatics
Appreciate neurology recommendations. Neurology met with the patient and recommended continuing telemetry monitoring with fall and delirium precautions. I also recommended that the patient not be given any FEEDER LOADER depressants. Their impression of
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
Patient's diet was advanced to solids after speech and swallow eval.
-Acute kidney injury on CKD stage IIIa:
Creatinine measured in the emergency department was 1.5 compared to a baseline of 1.1 on prior lab work
1 L IV normal saline given in the emergency department�continue IV fluid support
Continue to trend creatinine and follow CMP
Syncope secondary to symptomatic anemia versus orthostatic hypotension:
Patient has a history of upper GI bleed on 12/01/2022
EGD on 12/01/2022 showed antral erythema, mild, it was biopsied
Gastroenterology note on 12/02/2021 states that at the time that a colonoscopy would not be done due to family decision.
Hemoglobin in the emergency department was measured at 8.1
Stool occult blood
Iron, B12, folate
Stress ulcer prophylaxis is Protonix 40 mg twice daily
May consider GI consult if suspicion of GI bleed
Follow orthostatic vitals
Will consult PT/OT
-History of hypertensive urgency in 2019
Continue amlodipine
-Dementia with history of sundowning:
Moderate/severe dementia
Patient has a history of sundowning with agitation while admitted to the hospital
Normally walks with a walker
Continue donepezil
Continue Xanax and risperidone
-COPD:
History of nicotine dependence
[id number] smoker that stopped in 2019
Continue albuterol as needed
-Hyperlipidemia:
Continue Crestor
CODE STATUS: DNR
Stress Ulcer Prophylaxis: Protonix IV
DVT Prophylaxis: Sequential compression devices
Imaging:
-Head CT conducted on 01/19/2025:
FINDINGS:
There are no acute abnormalities.
There is old 8 mm lacunar infarct in the posterior inferior aspect left putamen
There is no intracranial hemorrhage.
There is no edema or mass effect to suggest neoplasm.
There are no abnormal extra-axial fluid collections.
There are no focal areas of diminished density to suggest infarct.
There is diffuse cortical atrophy as evidenced by prominence of the CSF spaces.
Additionally, there are patchy areas of low density in the periventricular and subcortical white matter bilaterally. These white matter changes are nonspecific but given the patient's age are most likely ischemic or degenerative in origin. Such
white matter changes are often seen in older individuals and typically do not correlate clinically.
IMPRESSION:
There are no acute intracranial abnormalities.
There is old 8 mm lacunar infarct in the posterior inferior aspect left putamen
There is moderate diffuse cortical atrophy with moderate nonspecific white matter changes as described above.
-Chest x-ray conducted on 01/19/2025:
The lungs appear clear of consolidation.
Cardiac silhouette size is enlarged with no convincing evidence for interstitial edema pattern.
-Brain MRI conducted on 01/20/2025:
FINDINGS: No intracranial hemorrhage, mass effect, midline shift. Moderate cerebral atrophy. Symmetric increased inversion recovery signal in periventricular white matter bilaterally. Scattered foci of increased inversion recovery signal in centrum
semiovale and montemayor radiata bilaterally. Patchy increased inversion recovery signal in central portion of sarah. No restricted diffusion.
7th and 8th nerves normal in appearance as they exit the brainstem and enter the internal auditory canals. Flow voids unremarkable. Paranasal sinuses are clear. There is a bright T2 focus in the posterior nasopharyngeal wall on the right side
measuring 8 mm in diameter. This is stable dating back to 2019, and therefore benign.
IMPRESSION:
Cerebral atrophy along with chronic small vessel ischemia in the cerebral white matter and sarah
No acute MR findings in the head
Anticipated Discharge: > 48 hours
Subjective/Interval History
-
Date of Service: January 23, 2025
Met with patient at the bedside. She is seen lying in bed resting comfortably. When asked she remembers how she lost consciousness in the dining [place] prior to admission she does not really recall the events that took place. She stated that she
would like to go back to memory care if possible.
Objective Data
-
Labs:
Labs
01/23/25 07:42
01/23/25 09:27
Vital Signs:
Vital Signs
Temp Pulse Resp BP Pulse Ox
97.7 F 90 20 156/65 95
01/23/25 06:08 01/22/25 23:55 01/22/25 23:55 01/23/25 06:08 01/22/25 23:55
I&O
01/22/25 01/23/25 01/24/25
06:59 06:59 06:59
Intake Total 840 / 840 1080 / 1800 720 / 720
Balance 840 / 840 1080 / 1800 720 / 720
Review of Systems
-
History Source: Patient
All other systems: Reviewed and negative
Constitutional: Reports No Symptoms
EENT: Reports No Symptoms Reported
Respiratory: Reports No Symptoms
Cardiac: Reports No Symptoms
Abdomen/GI: Reports No Symptoms
Breast: Reports No Symptoms
Genitourinary: Reports No Symptoms
Musculoskeletal: Reports No Symptoms
Skin: Reports No Symptoms
Endocrine: Reports No Symptoms
Hematologic / Lymphatic: Reports No Symptoms
Physical Exam
-
General: Well Developed, Well Nourished and No Apparent Distress
HEENT: Normocephalic, Atraumatic and Moist Mucous Membranes
Respiratory: Clear to Auscultation and Non Labored Respirations; Negative Wheezes, Rales, Rhonchi or Crackles
Cardiac: S1/S2; Negative Murmur, Rub or JVD
Breast: Deferred by me
GI: Soft, Nontender, Nondistended and Normal Bowel Sounds
Rectal: Deferred by Provider
Genito-urinary: Deferred by me
Musculoskeletal: No Clubbing, No Cyanosis and No Edema
Skin: Warm, Dry and Rash
Neuro: Awake and Alert
Psych: Calm and Apparent Dementia
[2025-01-23 07:56] LABS: Hematocrit 27.6 % (37.0-47.0); Hemoglobin 8.2 g/dL (12.0-16.0); Mean Corp Hgb Conc. 29.7 g/dL (33.0-37.0); Mean Corpuscular Hgb 20.9 pg (27.0-31.0); Mean Corpuscular Volume 70.4 fL (81.0-99.0); Mean Platelet Volume 10.3 fL (7.4-10.4); Platelet Count 180 10^3/uL (130-400); Red Blood Cell Count 3.92 10^6/uL (4.20-5.40); Red Cell Dist. Width 17.3 % (11.5-14.5); White Blood Cell Count 8.6 10^3/uL (4.8-10.8)
[2025-01-23] MEDS: NSS (PRESERVATIVE FREE) 10 ML IV ×2 (08:27→21:21)
[2025-01-23] MEDS: VITAMIN D3 (cholecalciferol) 50 MCG PO (08:27)
[2025-01-23] MEDS: ASPIR LOW (ENTERIC COATED) 81 MG PO (08:27)
[2025-01-23] MEDS: PROTONIX IV 40 MG IV ×2 (08:27→21:21)
[2025-01-23] MEDS: RISPERDAL 0.5 MG PO ×2 (08:27→21:25)
[2025-01-23] MEDS: NORVASC 5 MG PO (08:28)
[2025-01-23] MEDS: LEXAPRO 5 MG PO (08:28)
[2025-01-23] MEDS: CRESTOR 5 MG PO (08:28)
[2025-01-23] MEDS: ARICEPT 5 MG PO (08:28)
[2025-01-23] MEDS: VITAMIN B-12 1000 MCG PO (08:28)
[2025-01-23] MEDS: CLARITIN 10 MG PO (08:28)
[2025-01-23] MEDS: WELLBUTRIN SR (12 hour sustained release) 100 MG PO (08:29)
[2025-01-23] MEDS: DICLOFENAC 1% TOPICAL GEL 2 GRAM TOPICAL ×2 (08:31→23:01)
[2025-01-23 10:56] LABS: ALT (SGPT) 21 U/L (0-35); AST (SGOT) 44 U/L (14-36); Albumin 3.8 g/dl (3.5-5.0); Alkaline Phosphatase 51 U/L (38-126); Blood Urea Nitrogen 27 mg/dl (7-17); Calcium 9.2 mg/dl (8.4-10.2); Carbon Dioxide 23 mmol/L (22-30); Chloride 107 mmol/L (98-107); Estimated Creatinine Clearance 30 ml/min; Glucose 145 mg/dl (70-99); Potassium 4.3 mmol/L (3.5-5.1); Sodium 140 mmol/L (135-145); Total Bilirubin 0.6 mg/dl (0.2-1.3); eGFR 44.64
--- NOTE | 2025-01-23 14:26 | CM ---
Patient seen at bedside with physicians. Patient friend at bedside, and requesting patient go back to [facility] if possible. CM called to Kimberly at [facility] and sent via email/secure physical therapy notes to [facility] to assess. CM
also reached out to [facility], and [facility] to determine ability to accept. CM will continue to follow for discharge planning needs.
Plan; SNF vs [facility].
[2025-01-23] MEDS: XANAX 0.25 MG PO (16:18)
[2025-01-23] MEDS: LOVENOX 40 MG SC (17:58)
[2025-01-23] MEDS: MELATONIN 3 MG PO (21:25)
[2025-01-23] MEDS: REMERON 30 MG PO (21:26)
[2025-01-24] VITALS (8 sets, daily range): BP systolic 115–189; BP diastolic 47–116; PULSE 75–94; BMI 21.0
[2025-01-24] MEDS: XANAX 0.25 MG PO ×2 (00:57→14:48)
[2025-01-24] MEDS: TYLENOL 1000 MG PO ×3 (06:38→21:47)
[2025-01-24 06:46] LABS: Hematocrit 30.2 % (37.0-47.0); Hemoglobin 8.3 g/dL (12.0-16.0); Mean Corp Hgb Conc. 27.5 g/dL (33.0-37.0); Mean Corpuscular Hgb 20.6 pg (27.0-31.0); Mean Corpuscular Volume 74.9 fL (81.0-99.0); Platelet Count 177 10^3/uL (130-400); Red Blood Cell Count 4.03 10^6/uL (4.20-5.40); Red Cell Dist. Width 17.5 % (11.5-14.5); White Blood Cell Count 7.3 10^3/uL (4.8-10.8)
[2025-01-24 06:59] LABS: ALT (SGPT) 24 U/L (0-35); AST (SGOT) 42 U/L (14-36); Albumin 3.6 g/dl (3.5-5.0); Alkaline Phosphatase 48 U/L (38-126); Blood Urea Nitrogen 24 mg/dl (7-17); Calcium 9.1 mg/dl (8.4-10.2); Carbon Dioxide 20 mmol/L (22-30); Chloride 111 mmol/L (98-107); Estimated Creatinine Clearance 33 ml/min; Glucose 102 mg/dl (70-99); Magnesium 1.9 mg/dl (1.6-2.3); Potassium 4.2 mmol/L (3.5-5.1); Sodium 140 mmol/L (135-145); Total Bilirubin 0.4 mg/dl (0.2-1.3); eGFR 49.55
--- NOTE | 2025-01-24 07:30 | W.PN.HOSP.TC ---
Addendum entered and electronically signed by Roxann Hart MD, Resident 01/25/25 09:17:
CLARIFICATION: Patient requires a standard wheelchair due to ambulatory dysfunction. Patient is unable to abulate on her own due to dementia. A Standard Wheelchair is needed within the home for the patient to complete her daily activities. A walker
has been considered, but is clinically ineffective due to patient's condition and poor ability to ambulate.
Addendum entered and electronically signed by Luisana Cordero MD 01/24/25 17:47:
I saw and evaluated the patient independently. I reviewed the resident�s note and agree with findings and plan as documented by Dr. Hart.
GENERAL: well developed, well nourished, female in no apparent distress
HEENT: NC/AT--no O2 requirements
HEART: regular rate and rhythm, +S1, +S2
LUNGS : clear to auscultation bilaterally
ABDOM: soft, nontender, nondistended, + bowel sounds
EXT: no cyanosis, clubbing, or edema
NEUROLOGIC: apparent dementia
Altered mental status--likely due to dementia--no acute findings on MRI--chronic infarcts seen--cont asa--apprec neuro
Acute kidney injury on CKD stage IIIa--improved with IVF--can stop IVF
Syncope secondary to symptomatic anemia--not orthostatic--cont PPI--apprec PT/OT
History of hypertensive urgency--Continue amlodipine
Dementia with history of sundowning--at [facility]--cont donepazil, xanax, risperidone
COPD--no acute exacerbation--albuterol PRN
Hyperlipidemia--Continue Crestor
DVT proph
code status -- DNR
hopeful d/c back to [facility] tomorrow
Original Note:
Today's Communication/Plan
-
Patient is back at her baseline and discharge planning is ongoing. Patient requires a standard wheelchair due to ambulatory dysfunction. Patient is unable to self-propel due to dementia. A walker has been considered, but is clinically ineffective
due to patient's condition.
Assessment / Plan
Assessment / Plan
Assessment/Plan:
-Altered mental status:
Episodic dysarthria based on history -uncertain if patient did fully lose consciousness, but patient was slow to respond and had garbled speech as per history taken from staff and family
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
Patient was taken off Plavix on November 2022 due to upper GI bleed
Blood pressure was elevated at 167/55�currently allowed permissive hypertension
LFTs within normal limits
Alk phos within normal limit
Continue aspirin 81 mg daily
Brain MRI -showed cerebral atrophy along with chronic small vessel ischemia in the cerebral white matter and sarah. No acute MRI findings in the head.
Head CT conducted on 01/19/2025 showed no acute intracranial abnormalities. There is an old 8 mm lacunar infarct in the posterior inferior aspect of the left Lang there is moderate diffuse cortical atrophy with moderate nonspecific white matter
changes.
Chest x-ray conducted on 01/19/2025 showed lungs clear of consolidation. Cardiac silhouette size is enlarged with no convincing evidence of interstitial edema pattern.
Monitor orthostatics
Appreciate neurology recommendations. Neurology met with the patient and recommended continuing telemetry monitoring with fall and delirium precautions. I also recommended that the patient not be given any [employer] depressants. Their impression of
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
Patient's diet was advanced to solids after speech and swallow eval.
-Acute kidney injury on CKD stage IIIa:
Creatinine measured in the emergency department was 1.5 compared to a baseline of 1.1 on prior lab work
1 L IV normal saline given in the emergency department�continue IV fluid support
Continue to trend creatinine and follow CMP
Syncope secondary to symptomatic anemia versus orthostatic hypotension:
Patient has a history of upper GI bleed on 12/01/2022
EGD on 12/01/2022 showed antral erythema, mild, it was biopsied
Gastroenterology note on 12/02/2021 states that at the time that a colonoscopy would not be done due to family decision.
Hemoglobin in the emergency department was measured at 8.1
Stool occult blood
Iron, B12, folate
Stress ulcer prophylaxis is Protonix 40 mg twice daily
May consider GI consult if suspicion of GI bleed
Follow orthostatic vitals
Will consult PT/OT
-History of hypertensive urgency in 2020
Continue amlodipine
-Dementia with history of sundowning:
Moderate/severe dementia
Patient has a history of sundowning with agitation while admitted to the hospital
Normally walks with a walker
Continue donepezil
Continue Xanax and risperidone
Patient requires a standard wheelchair due to ambulatory dysfunction. Patient is unable to self-propel due to dementia. A walker has been considered, but is clinically ineffective due to patient's condition.
-COPD:
History of nicotine dependence
[id number] smoker that stopped in 2019
Continue albuterol as needed
-Hyperlipidemia:
Continue Crestor
CODE STATUS: DNR
Stress Ulcer Prophylaxis: Protonix IV
DVT Prophylaxis: Sequential compression devices
Imaging:
-Head CT conducted on 01/19/2025:
FINDINGS:
There are no acute abnormalities.
There is old 8 mm lacunar infarct in the posterior inferior aspect left putamen
There is no intracranial hemorrhage.
There is no edema or mass effect to suggest neoplasm.
There are no abnormal extra-axial fluid collections.
There are no focal areas of diminished density to suggest infarct.
There is diffuse cortical atrophy as evidenced by prominence of the CSF spaces.
Additionally, there are patchy areas of low density in the periventricular and subcortical white matter bilaterally. These white matter changes are nonspecific but given the patient's age are most likely ischemic or degenerative in origin. Such
white matter changes are often seen in older individuals and typically do not correlate clinically.
IMPRESSION:
There are no acute intracranial abnormalities.
There is old 8 mm lacunar infarct in the posterior inferior aspect left putamen
There is moderate diffuse cortical atrophy with moderate nonspecific white matter changes as described above.
-Chest x-ray conducted on 01/19/2025:
The lungs appear clear of consolidation.
Cardiac silhouette size is enlarged with no convincing evidence for interstitial edema pattern.
-Brain MRI conducted on 01/20/2025:
FINDINGS: No intracranial hemorrhage, mass effect, midline shift. Moderate cerebral atrophy. Symmetric increased inversion recovery signal in periventricular white matter bilaterally. Scattered foci of increased inversion recovery signal in centrum
semiovale and montemayor radiata bilaterally. Patchy increased inversion recovery signal in central portion of sarah. No restricted diffusion.
7th and 8th nerves normal in appearance as they exit the brainstem and enter the internal auditory canals. Flow voids unremarkable. Paranasal sinuses are clear. There is a bright T2 focus in the posterior nasopharyngeal wall on the right side
measuring 8 mm in diameter. This is stable dating back to 2019, and therefore benign.
IMPRESSION:
Cerebral atrophy along with chronic small vessel ischemia in the cerebral white matter and sarah
No acute MR findings in the head
Anticipated Discharge: > 48 hours
Subjective/Interval History
-
Date of Service: January 24, 2025
Met with patient at the bedside. She appeared confused and did not know where she was. She is oriented only to self. At times was making incoherent statements. Reassurance was given.
Objective Data
-
Labs:
Laboratory Results
01/24/25
06:02
WBC 7.3
Hgb 8.3 L
Hct 30.2 L
Plt Count 177
Sodium 140
Potassium 4.2
Chloride 111 H
Carbon Dioxide 20 L
BUN 24 H
Creatinine 1.1 H
Glucose 102 H
Calcium 9.1
Total Bilirubin 0.4
AST 42 H
ALT 24
Alkaline Phosphatase 48
Vital Signs:
Vital Signs
Temp Pulse Resp BP Pulse Ox
97.5 F 66 16 115/47 94
01/24/25 15:51 01/24/25 15:51 01/24/25 15:06 01/24/25 15:51 01/24/25 15:06
I&O
01/23/25 01/24/25 01/25/25
06:59 06:59 06:59
Intake Total 1080 / 1800 1530 / 1530 540 / 540
Balance 1080 / 1800 1530 / 1530 540 / 540
Review of Systems
-
Unable to obtain full review of systems at this time due to: Dementia
History Source: Patient
Constitutional: Reports No Symptoms
EENT: Reports No Symptoms Reported
Respiratory: Reports No Symptoms
Cardiac: Reports No Symptoms
Abdomen/GI: Reports No Symptoms
Breast: Reports No Symptoms
Genitourinary: Reports No Symptoms
Musculoskeletal: Reports No Symptoms
Skin: Reports No Symptoms
Neuro: Reports No Symptoms
Endocrine: Reports No Symptoms
Allergy / Immunology: Reports No Symptoms
Psych: Reports Other (Confusion)
Physical Exam
-
General: Well Developed and Well Nourished
HEENT: Normocephalic and Atraumatic
Respiratory: Clear to Auscultation
Cardiac: S1/S2; Negative Murmur or Rub
GI: Soft, Nontender and Nondistended
Rectal: Deferred by Provider
Genito-urinary: Deferred by me
Musculoskeletal: No Clubbing, No Cyanosis and No Edema
Skin: Warm and Dry
Neuro: Awake
Psych: Confused and Apparent Dementia
[2025-01-24] MEDS: WELLBUTRIN SR (12 hour sustained release) 100 MG PO (07:55)
[2025-01-24] MEDS: CRESTOR 5 MG PO (07:55)
[2025-01-24] MEDS: VITAMIN D3 (cholecalciferol) 50 MCG PO (07:56)
[2025-01-24] MEDS: VITAMIN B-12 1000 MCG PO (07:56)
[2025-01-24] MEDS: RISPERDAL 0.5 MG PO ×2 (07:56→21:49)
[2025-01-24] MEDS: CLARITIN 10 MG PO (07:56)
[2025-01-24] MEDS: LEXAPRO 5 MG PO (07:56)
[2025-01-24] MEDS: DICLOFENAC 1% TOPICAL GEL 2 GRAM TOPICAL ×2 (07:56→21:49)
[2025-01-24] MEDS: ARICEPT 5 MG PO (07:56)
[2025-01-24] MEDS: ASPIR LOW (ENTERIC COATED) 81 MG PO (07:56)
[2025-01-24] MEDS: NORVASC 5 MG PO (07:56)
[2025-01-24] MEDS: NSS (PRESERVATIVE FREE) 10 ML IV ×2 (07:56→21:45)
[2025-01-24] MEDS: PROTONIX IV 40 MG IV ×2 (07:56→21:46)
[2025-01-24] MEDS: APRESOLINE 10 MG IV ×2 (14:48→22:10)
--- NOTE | 2025-01-24 17:07 | W.PN.UPDATE ---
Update Note
Progress Note Update
Patient requires a standard wheelchair due to ambulatory dysfunction. Patient is unable to self-propel due to dementia. A walker has been considered, but is clinically ineffective due to patient's condition.
[2025-01-24] MEDS: LOVENOX 40 MG SC (17:32)
[2025-01-24] MEDS: REMERON 30 MG PO (21:48)
[2025-01-24] MEDS: MELATONIN 3 MG PO (21:49)
[2025-01-25] MEDS: TYLENOL 1000 MG PO ×2 (05:51→15:16)
[2025-01-25 06:00] VITALS: BMI 20.5
[2025-01-25 06:48] LABS: ALT (SGPT) 27 U/L (0-35); AST (SGOT) 41 U/L (14-36); Alkaline Phosphatase 49 U/L (38-126); Blood Urea Nitrogen 24 mg/dl (7-17); Calcium 9.1 mg/dl (8.4-10.2); Carbon Dioxide 22 mmol/L (22-30); Chloride 110 mmol/L (98-107); Estimated Creatinine Clearance 33 ml/min; Glucose 107 mg/dl (70-99); Potassium 4.2 mmol/L (3.5-5.1); Sodium 141 mmol/L (135-145); Total Bilirubin 0.6 mg/dl (0.2-1.3); Total Protein 6.2 g/dl (6.3-8.2); eGFR 49.55
[2025-01-25 07:10] LABS: Hematocrit 28.4 % (37.0-47.0); Hemoglobin 8.2 g/dL (12.0-16.0); Mean Corp Hgb Conc. 28.9 g/dL (33.0-37.0); Mean Corpuscular Hgb 21.1 pg (27.0-31.0); Mean Platelet Volume 11.1 fL (7.4-10.4); Platelet Count 191 10^3/uL (130-400); Red Blood Cell Count 3.89 10^6/uL (4.20-5.40); Red Cell Dist. Width 17.7 % (11.5-14.5); White Blood Cell Count 6.1 10^3/uL (4.8-10.8)
--- NOTE | 2025-01-25 07:19 | W.PN.HOSP.TC ---
Addendum entered and electronically signed by Luisana Cordero MD 01/25/25 15:27:
anemia due to iron deficiency with very low normal R72--[id number] iron supps and will add B12
Addendum entered and electronically signed by Luisana Cordero MD 01/25/25 15:24:
I saw and evaluated the patient independently. I reviewed the resident�s note and agree with findings and plan as documented by Dr. Hart.
GENERAL: well developed, well nourished, female in no apparent distress
HEENT: NC/AT--no O2 requirements
HEART: regular rate and rhythm, +S1, +S2
LUNGS : clear to auscultation bilaterally
ABDOM: soft, nontender, nondistended, + bowel sounds
EXT: no cyanosis, clubbing, or edema
NEUROLOGIC: apparent dementia
Altered mental status--likely due to dementia--no acute findings on MRI--chronic infarcts seen--cont asa--apprec neuro
Acute kidney injury on CKD stage IIIa--improved--can stop IVF
Syncope secondary to symptomatic anemia--not orthostatic--cont PPI--apprec PT/OT
History of hypertensive urgency--Continue amlodipine
Dementia with history of sundowning--at [facility]--cont donepazil, xanax, risperidone
COPD--no acute exacerbation--albuterol PRN
Hyperlipidemia--Continue Crestor
DVT proph
code status -- DNR
hopeful d/c back to [facility]
Original Note:
Today's Communication/Plan
-
Patient is medically stable and appropriate for discharge. Move forward with discharge planning.
Assessment / Plan
Assessment / Plan
Assessment/Plan:
-Altered mental status:
Episodic dysarthria based on history -uncertain if patient did fully lose consciousness, but patient was slow to respond and had garbled speech as per history taken from staff and family
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
Patient was taken off Plavix on November 2022 due to upper GI bleed
Blood pressure was elevated at 167/55�currently allowed permissive hypertension
LFTs within normal limits
Alk phos within normal limit
Continue aspirin 81 mg daily
Brain MRI -showed cerebral atrophy along with chronic small vessel ischemia in the cerebral white matter and sarah. No acute MRI findings in the head.
Head CT conducted on 01/19/2025 showed no acute intracranial abnormalities. There is an old 8 mm lacunar infarct in the posterior inferior aspect of the left Lang there is moderate diffuse cortical atrophy with moderate nonspecific white matter
changes.
Chest x-ray conducted on 01/19/2025 showed lungs clear of consolidation. Cardiac silhouette size is enlarged with no convincing evidence of interstitial edema pattern.
Monitor orthostatics
Appreciate neurology recommendations. Neurology met with the patient and recommended continuing telemetry monitoring with fall and delirium precautions. I also recommended that the patient not be given any [employer] depressants. Their impression of
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
Patient's diet was advanced to solids after speech and swallow eval.
-Acute kidney injury on CKD stage IIIa:
Creatinine measured in the emergency department was 1.5 compared to a baseline of 1.1 on prior lab work
1 L IV normal saline given in the emergency department�continue IV fluid support
Continue to trend creatinine and follow CMP
Syncope secondary to Iron Deficiency anemia:
Patient has a history of upper GI bleed on 12/01/2022
EGD on 12/01/2022 showed antral erythema, mild, it was biopsied
Gastroenterology note on 12/02/2021 states that at the time that a colonoscopy would not be done due to family decision.
Hemoglobin in the emergency department was measured at 8.1
Stool occult blood
Iron less than 20, total iron binding capacity at 331- unable to calculate % saturation due to low iron result, ferritin at 8.4, vitamin B12 at 240, folate at 10.2
Stress ulcer prophylaxis is Protonix 40 mg twice daily
May consider GI consult if suspicion of GI bleed
Follow orthostatic vitals -stable
-History of hypertensive urgency in 2019
Continue amlodipine
-Dementia with history of sundowning:
Moderate/severe dementia
Patient has a history of sundowning with agitation while admitted to the hospital
Normally walks with a walker
Continue donepezil
Continue Xanax and risperidone
Patient requires a standard wheelchair due to ambulatory dysfunction. Patient is unable to self-propel due to dementia. A walker has been considered, but is clinically ineffective due to patient's condition.
-COPD:
History of nicotine dependence
[id number] smoker that stopped in 2019
Continue albuterol as needed
-Hyperlipidemia:
Continue Crestor
CODE STATUS: DNR
Stress Ulcer Prophylaxis: Protonix IV
DVT Prophylaxis: Sequential compression devices
Imaging:
-Head CT conducted on 01/19/2025:
FINDINGS:
There are no acute abnormalities.
There is old 8 mm lacunar infarct in the posterior inferior aspect left putamen
There is no intracranial hemorrhage.
There is no edema or mass effect to suggest neoplasm.
There are no abnormal extra-axial fluid collections.
There are no focal areas of diminished density to suggest infarct.
There is diffuse cortical atrophy as evidenced by prominence of the CSF spaces.
Additionally, there are patchy areas of low density in the periventricular and subcortical white matter bilaterally. These white matter changes are nonspecific but given the patient's age are most likely ischemic or degenerative in origin. Such
white matter changes are often seen in older individuals and typically do not correlate clinically.
IMPRESSION:
There are no acute intracranial abnormalities.
There is old 8 mm lacunar infarct in the posterior inferior aspect left putamen
There is moderate diffuse cortical atrophy with moderate nonspecific white matter changes as described above.
-Chest x-ray conducted on 01/19/2025:
The lungs appear clear of consolidation.
Cardiac silhouette size is enlarged with no convincing evidence for interstitial edema pattern.
-Brain MRI conducted on 01/20/2025:
FINDINGS: No intracranial hemorrhage, mass effect, midline shift. Moderate cerebral atrophy. Symmetric increased inversion recovery signal in periventricular white matter bilaterally. Scattered foci of increased inversion recovery signal in centrum
semiovale and montemayor radiata bilaterally. Patchy increased inversion recovery signal in central portion of sarah. No restricted diffusion.
7th and 8th nerves normal in appearance as they exit the brainstem and enter the internal auditory canals. Flow voids unremarkable. Paranasal sinuses are clear. There is a bright T2 focus in the posterior nasopharyngeal wall on the right side
measuring 8 mm in diameter. This is stable dating back to 2019, and therefore benign.
IMPRESSION:
Cerebral atrophy along with chronic small vessel ischemia in the cerebral white matter and sarah
No acute MR findings in the head
Anticipated Discharge: Today
Subjective/Interval History
-
Date of Service: January 25, 2025
Met with the patient at the bedside. She was laying in bed and confused. Patient was uncertain as to how to respond to basic questions such as how she is doing and how she feels. She was seen again later on in the day sitting in her chair and
more alert. Still confused and only oriented to self. This is her baseline.
Objective Data
-
Labs:
Laboratory Results
01/25/25
05:54
WBC 6.1
Hgb 8.2 L
Hct 28.4 L
Plt Count 191
Sodium 141
Potassium 4.2
Chloride 110 H
Carbon Dioxide 22
BUN 24 H
Creatinine 1.1 H
Glucose 107 H
Calcium 9.1
Total Bilirubin 0.6
AST 41 H
ALT 27
Alkaline Phosphatase 49
Vital Signs:
Vital Signs
Temp Pulse Resp BP Pulse Ox
98.8 F 90 16 139/61 94
01/24/25 23:03 01/24/25 23:03 01/24/25 23:03 01/24/25 23:48 01/25/25 02:33
I&O
01/24/25 01/25/25 01/26/25
06:59 06:59 06:59
Intake Total 1530 / 1530 780 / 780
Balance 1530 / 1530 780 / 780
Review of Systems
-
Unable to obtain full review of systems at this time due to: Dementia
History Source: Patient
All other systems: Not reviewed unless documented
Respiratory: Reports No Symptoms
Cardiac: Reports No Symptoms
Skin: Reports No Symptoms
Psych: Reports Other (Confused)
Physical Exam
-
General: Well Developed, Well Nourished, No Apparent Distress and Comfortable
HEENT: Normocephalic, Atraumatic, Moist Mucous Membranes and Ears Appear Normal
Respiratory: Clear to Auscultation
Cardiac: S1/S2; Negative Murmur, Rub or JVD
Breast: Deferred by me
GI: Soft, Nontender, Nondistended and Normal Bowel Sounds
Rectal: Deferred by Provider
Genito-urinary: Deferred by me
Musculoskeletal: No Clubbing, No Cyanosis and No Edema
Skin: Warm and Dry; Negative Rash
Neuro: Awake
Psych: Calm and Confused
[2025-01-25 07:30] VITALS: BP 184/85
[2025-01-25] MEDS: WELLBUTRIN SR (12 hour sustained release) 100 MG PO (08:19)
[2025-01-25] MEDS: VITAMIN B-12 1000 MCG PO (08:19)
[2025-01-25] MEDS: ASPIR LOW (ENTERIC COATED) 81 MG PO (08:19)
[2025-01-25] MEDS: PROTONIX IV 40 MG IV (08:21)
[2025-01-25] MEDS: NSS (PRESERVATIVE FREE) 10 ML IV (08:22)
[2025-01-25] MEDS: ARICEPT 5 MG PO (08:22)
[2025-01-25] MEDS: LEXAPRO 5 MG PO (08:22)
[2025-01-25] MEDS: NORVASC 5 MG PO (08:22)
[2025-01-25] MEDS: CRESTOR 5 MG PO (08:22)
[2025-01-25] MEDS: RISPERDAL 0.5 MG PO (08:22)
[2025-01-25] MEDS: CLARITIN 10 MG PO (08:22)
[2025-01-25] MEDS: DICLOFENAC 1% TOPICAL GEL 2 GRAM TOPICAL (08:22)
[2025-01-25] MEDS: VITAMIN D3 (cholecalciferol) 50 MCG PO (08:23)
[2025-01-25 10:54] VITALS: BP 114/61; PULSE 65; O2SAT 97
[2025-01-25 11:02] VITALS: BP 114/61; PULSE 69; O2SAT 97
[2025-01-25 11:31] VITALS: BP 151/69
--- NOTE | 2025-01-25 12:18 | CM ---
Please call report to; [phone]/director of group counseling program cell [phone]. fax to [phone]/or [phone]. CM will confirm delivery of the wheelchair and patient will need ambulance/transportation form. CM will call to patient family to review
IMM. CM will continue to follow for discharge planning needs.
Plan; return to [facility].
--- NOTE | 2025-01-25 13:56 | PTCARENOTE ---
Addendum entered by Modesta Odonnell RN 01/25/25 14:56:
Attempted a second time to call report, again went to voicemail. Called the director's number that was left in CM's note, left a voicemail w/ call back number.
Original Note:
Attempted to call report to [facility]. Call went to [email or web address], message left with call back number.
[2025-01-25] MEDS: TYLENOL PO (14:03)
--- NOTE | 2025-01-25 14:26 | PN.CDI ---
CDI
- -
CDI:
Physician Documentation Request
Admit Date: 01/19/25 18:27
Dear Doctor,
Please review the following and provide your response in the progress notes.
Clinical Indicators:
- per ER 'patient was eating lunch and then slumped over and had a syncopal event'
- 01/19 H&P 'Possible Syncope 2/2 Symptomatic Anemia'
- 'Iron studies, B12, folate'
- 01/24 PN 'Syncope secondary to symptomatic anemia'
- Cyanocobalamin started
Laboratory Tests
01/19/25
14:04
Iron < 20 L
TIBC 331
Ferritin 8.4 L
Vitamin B12 240
Folate 10.2
Please clarify, in your progress note, which of the following is the most likely type of anemia you are evaluating, monitoring and/or treating?
Chronic iron deficiency anemia
Vitamin B deficiency anemia - indicate etiology, such as intrinsic factor deficiency, malabsorption, transcobalamin II deficiency, dietary etc.
Folate deficiency anemia - indicate etiology, such as dietary, drug induced etc.
Other (please specify)
Use of terms such as suspected, likely, concern for, or probable (associated with a specific diagnosis that is being evaluated, monitored, or treated as if it exists) are acceptable and can be coded in the inpatient setting, when documented at the
time of discharge.
Thank you,
Juice Oliver RN
CDI Specialist
Please use your independent medical judgment in providing your response.
[2025-01-25 15:21] VITALS: BP 155/55
--- NOTE | 2025-01-25 16:13 | W.DCSUMMARY ---
Addendum entered and electronically signed by Luisana Cordero MD 01/25/25 17:27:
Read, reviewed, and agree. See same day progress note for additional details. Time spent coordinating care, DC planning, review of DC plan of care with resident, transition of care, review of records in EMR, med rec, consults, notes, d/w
consultants, nursing, family, and CM = 28 minutes
Original Note:
Discharge Summary
Discharge Data
Date of Admission: 01/19/25
Date of Discharge: 01/25/25
-
Pending Results: No
Hospital Course
Discharging Physician : Luisana Cordero MD
Disposition : Assisted Living
Primary care physician : Bird Corral
Principal Discharge diagnosis : GEOFFREY and Altered Mental Status
Chronic Discharge diagnosis : Chronic prescription opiate use, senile dementia, chronic kidney disease stage IIIa, essential hypertension, hyperlipidemia, cervical stenosis of the spine
Hospital Course : Patient is an 84-year-old female from [facility] who was brought to the emergency department after having an episode of sudden generalized weakness and slumping over at a table while eating lunch at the [employer].
Staff reported there were no slurring of words or focal deficits. She was eating lunch and in her normal state of health prior to these events. She walked herself down to the dining don[employer] with her walker as she usually does. The patient has a
past medical history of CVA in 2008 with residual occasional dysarthria per son, hypertension/hypertensive urgency in 2019, upper GI bleed on 12/01/2022 and received 3 units of PRBCs at that time, dementia, sundowning, COPD, former smoker with
approximately 68 pack years, depression/anxiety, hyperlipidemia, left humerus fracture in 2021, chronic pain on chronic oral opiates. On arrival, EMS reported an oxygen saturation of 90% on room air and she was placed on 2 L with 94% oxygen
saturation while in the ER. On arrival to the emergency department the patient was oriented to first name, date of , and she referred to her stepson as the best person in her life but did not remember his name. She denied any dizziness,
vertigo, blurred vision, sore throat, fever, chills, chest pain, palpitations, cough, shortness of breath, abdominal pain, nausea, vomiting, diarrhea, and urinary symptoms. In the emergency department the patient's white blood cell count was 6.4
within normal limits and her hemoglobin was 8.1. Chemistry labs showed an elevated chloride of 108, elevated BUN of 34, and a marked increase of creatinine of 1.5 from her baseline of 1.1 measured on 12/04/2022. This sudden rise in creatinine
indicated acute kidney injury. Of note, the patient's ferritin was measured at 8.4. Troponins were within normal limits. The patient was admitted to [facility] for altered mental status and acute kidney injury.
There was consideration of orthostatic hypotension being the primary causative factor for the patient's altered mental status. Orthostatic blood pressures taken were within normal limits. Iron was less than 20, with total iron binding capacity at
331 and was unable to calculate % saturation due to low iron result, ferritin was at 8.4, vitamin B12 was at 240, folate was at 10.2. These findings indicated anemia due to iron deficiency with very low normal B12. Head CT conducted on 01/19/2025
showed no acute intracranial abnormalities. There was an old 8 mm lacunar infarct in the posterior inferior aspect of the left Lang there was moderate diffuse cortical atrophy with moderate nonspecific white matter changes seen. Chest x-ray
conducted on 01/19/2025 showed lungs clear of consolidation. Cardiac silhouette size wzs enlarged with no convincing evidence of interstitial edema pattern. Neurology was consulted. IV fluid support was given and creatinine trended downwards.
Neurology assessment believes that the patient altered mental status was due to multifactorial encephalopathy�possibly due to neurodegenerative, toxic, or metabolic causes. There was also suspicion of a mixed dementia with behavioral manifestation
component. Patient also was iron deficient with vitamin B12 deficiency as well. EEG conducted suggested mild bihemispheric cortical dysfunction. Brain MRI without gadolinium on 01/20/2025 showed no acute abnormalities and had presence of cerebral
atrophy. Patient appeared to be back at her baseline and will be discharged back to her memory care facility with iron and B12 supplements for anemia due to iron deficiency with very low normal B12.
The patient has reached maximal benefit from this hospital admission and the patient is appropriate for discharge at the present time. There are no barriers that would impede the patient from being discharged from the hospital at the present time.
The patient should follow-up with their primary care provider within 1 week following discharge.
Important imaging findings :
-Head CT conducted on 01/19/2025:
FINDINGS:
There are no acute abnormalities.
There is old 8 mm lacunar infarct in the posterior inferior aspect left putamen
There is no intracranial hemorrhage.
There is no edema or mass effect to suggest neoplasm.
There are no abnormal extra-axial fluid collections.
There are no focal areas of diminished density to suggest infarct.
There is diffuse cortical atrophy as evidenced by prominence of the CSF spaces.
Additionally, there are patchy areas of low density in the periventricular and subcortical white matter bilaterally. These white matter changes are nonspecific but given the patient's age are most likely ischemic or degenerative in origin. Such
white matter changes are often seen in older individuals and typically do not correlate clinically.
IMPRESSION:
There are no acute intracranial abnormalities.
There is old 8 mm lacunar infarct in the posterior inferior aspect left putamen
There is moderate diffuse cortical atrophy with moderate nonspecific white matter changes as described above.
-Chest x-ray conducted on 01/19/2025:
The lungs appear clear of consolidation.
Cardiac silhouette size is enlarged with no convincing evidence for interstitial edema pattern.
-Brain MRI conducted on 01/20/2025:
FINDINGS: No intracranial hemorrhage, mass effect, midline shift. Moderate cerebral atrophy. Symmetric increased inversion recovery signal in periventricular white matter bilaterally. Scattered foci of increased inversion recovery signal in centrum
semiovale and montemayor radiata bilaterally. Patchy increased inversion recovery signal in central portion of sarah. No restricted diffusion.
7th and 8th nerves normal in appearance as they exit the brainstem and enter the internal auditory canals. Flow voids unremarkable. Paranasal sinuses are clear. There is a bright T2 focus in the posterior nasopharyngeal wall on the right side
measuring 8 mm in diameter. This is stable dating back to 2019, and therefore benign.
IMPRESSION:
Cerebral atrophy along with chronic small vessel ischemia in the cerebral white matter and sarah
No acute MR findings in the headAnticipated Discharge: > 48 hours
Procedure findings :
-EEG conducted on 01/20/2025:
LESS THAN 1 HOUR EEG REPORT
LESS THAN 1 HOUR EEG INTERPRETATION:
Mildly abnormal study for age based on generalized slowing demonstrated bihemispherically equally
CLINICAL CORRELATION:
Although normative values not been established for a person of this advanced age the patient�s symmetry of the background suggests that this study was suggestive of mild bihemispheric cortical dysfunction. No epileptiform features were demonstrated.
If concerns remain regarding epilepsy, prolonged monitoring may be of assistance.
Discharge Plan
-
Patient Disposition: Assisted Living
Discharge Diagnosis/Procedures: GEOFFREY and Altered Mental Status
Condition: Good
Diet: No restrictions
Activity: No restrictions
Driving Restrictions: As prior to admission
Bathing Restrictions: None
Referrals:
Bird Corral MD [Family Provider] - in less than 1 week
Prescriptions:
New
ferrous sulfate [Iron (ferrous sulfate)] 325 mg (65 mg iron) tablet
325 mg PO DAILY 30 Days Qty: 30 0RF
oxycodone 5 mg tablet
2.5 mg PO BID Qty: 7 0RF
alprazolam 0.25 mg tablet
0.25 mg PO BID PRN (Reason: anxiety) Qty: 7 0RF
cyanocobalamin (vitamin B-12) [Vitamin B-12] 1,000 mcg Tablet
1,000 mcg PO DAILY 30 Days Qty: 30 0RF
Continued
rosuvastatin 5 MG tablet
5 mg PO DAILY
donepezil 5 MG tablet
5 mg PO DAILY
sennosides [Senokot] 8.6 mg Tablet
8.6 mg PO DAILY
amlodipine 2.5 mg Tablet
2.5 mg PO DAILY
acetaminophen 500 mg Tablet
1,000 mg PO TID@0600,1400,2200
diclofenac sodium 1 % Gel
2 g TOPICAL BID
cholecalciferol (vitamin D3) [Vitamin D3] 50 mcg (2,000 unit) Tablet
50 mcg PO DAILY
aspirin 81 MG tablet,delayed release (DR/EC)
81 mg PO DAILY
melatonin 3 mg Tablet
3 mg PO HS
bupropion HCl 100 mg Tablet Sustained-Release 12 Hr
100 mg PO DAILY
mirtazapine 30 mg Tablet
30 mg PO HS
azelastine 137 mcg (0.1 %) [place],Non-Aerosol
1 spray INTRANASAL DAILY
albuterol sulfate 90 mcg/actuation Hfa Aerosol Inhaler
2 puff INHALATION R Q6HPRN PRN (Reason: wheezing)
ipratropium bromide 21 mcg (0.03 %) [place],Non-Aerosol
1 spray INTRANASAL DAILY
loratadine 10 mg Tablet
10 mg PO DAILY
risperidone 0.5 mg Tablet
0.5 mg PO BID
escitalopram oxalate 5 mg Tablet
5 mg PO DAILY
guaifenesin [Mucinex] 600 mg Tablet Extended Release 12hr
600 mg PO BID
pantoprazole [Protonix] 40 mg tablet,delayed release (DR/EC)
40 mg PO DAILY
Discontinued
alprazolam [Xanax] 0.25 mg Tablet
0.25 mg PO BIDPRN PRN (Reason: anxiety)
oxycodone 5 mg Tablet
2.5 mg PO BID
Discharge Orders:
Discharge Patient (As Directed); Ordered 01/25/25
Ordered By: Roxann Hart
Discharge Date and Time
Discharge Date/Time: 01/25/25 16:09
Print Language: ROMANSH
== END 2025-01-25 16:09 | disposition home or self-care (01) | DRG 884 ==
LOC: 3 WEST ACU 18:27
PROVIDERS: Clinical Nurse Specialist Family Health; ADMITTING PHYSICIAN Hospitalist; ATTENDING PHYSICIAN Internal Medicine; CONSULT PHYSICIAN Psychiatry & Neurology Neurology; EMERGENCY PHYSICIAN Student in an Organized Health Care Education/Training Program; FAMILY PHYSICIAN Family Medicine
DX: F03.C18 Unspecified dementia, severe, with other behavioral disturbance (principal); G92.8 Other toxic encephalopathy; N17.9 Acute kidney failure, unspecified; F11.20 Opioid dependence, uncomplicated; Z66 Do not resuscitate; I95.1 Orthostatic hypotension; J44.9 Chronic obstructive pulmonary disease, unspecified; K21.9 Gastro-esophageal reflux disease without esophagitis; N18.32 Chronic kidney disease, stage 3b; I12.9 Hypertensive chronic kidney disease with stage 1 through stage 4 chronic kidney disease, or unspecified chronic kidney disease; I69.322 Dysarthria following cerebral infarction; D50.9 Iron deficiency anemia, unspecified; R26.89 Other abnormalities of gait and mobility; G47.00 Insomnia, unspecified; G89.4 Chronic pain syndrome; E53.8 Deficiency of other specified B group vitamins; E78.00 Pure hypercholesterolemia, unspecified; M48.061 Spinal stenosis, lumbar region without neurogenic claudication; Z87.891 Personal history of nicotine dependence; Z86.16 Personal history of COVID-19; Z11.52 Encounter for screening for COVID-19; Z79.899 Other long term (current) drug therapy; Z79.82 Long term (current) use of aspirin
CPT/HCPCS: 70450; 70551; 71046; 80053; 80061; 80143; 80179; 81003; 81015; 82607; 82728; 82746; 83036; 83540; 83550; 83735; 84100; 84443; 84484; 85025; 85027; 86850; 86900; 86901; 87070; 87502; 87811; 93005; 95816; 96360; 97163; 97166; 97530; 97535; 99285